=== PATIENT | female | born 1940 | race Caucasian/White ===

== ENCOUNTER 2016-10-24 17:12 | Emergency (ER) | payer MEDICARE, OTHER ==
[2016-10-24] MEDS ORDERED: ALBUTEROL SULFATE 2.5 MG/3 ML VIAL.NEB IH ONE (17:21)
--- NOTE | 2016-10-24 17:43 | ERNOTE ---
Dyspnea - Date Date of Service: 10/24/16 - General Presenting Symptoms: other - decreased oxygen Time Seen by Provider: 10/24/16 17:17 Source: patient Exam Limitations: no limitations - Immun/Allergies/Home Medications Immunizations: IMMUNIZATION HX Immunizations Up to Date Yes Hx Pneumococcal Vaccination Yes Allergies/Adverse Reactions: Allergies Penicillins Allergy (Verified 12/19/13 15:04) Home Medications: HOME MEDICATIONS Acetaminophen [Tylenol] 650 mg PO Q4H PRN 12/19/13 [Last Taken 12/09/13] Albuterol Sulfate/Ipratropium [Duoneb 2.5-0.5MG/3ML Soln] 3 ml INH QID PRN 12/19 [Last Taken 12/11/13] Ciclopirox/Skin Cleanser No.[id number] [Ciclodan 0.77% Cream Kit] 1 appl TP DAILY PRN [Last Taken Unknown] Lisinopril [Zestril] 10 mg PO DAILY 12/19/13 [Last Taken 12/19/13] Nystatin [Nystop] 1 appl TP BID PRN 12/19/13 [Last Taken Unknown] Pimecrolimus [Elidel] 1 appl TP DAILY PRN 12/19/13 [Last Taken Unknown] Docusate Sodium [Colace] 100 mg PO BID 10/05/14 [Last Taken Unknown] Albuterol Sulfate [Albuterol Sulfate 2.5 MG/3 ML] 2.5 mg IH Q4H PRN 10/24/16 [ Last Taken Unknown] Bupropion HCl 75 mg PO DAILY 10/24/16 [Last Taken Unknown] Doxycycline Monohydrate 100 mg PO BID #20 tablet 10/24/16 [Last Taken Unknown] Fexofenadine HCl 60 mg PO DAILY 10/24/16 [Last Taken Unknown] Furosemide [Lasix] 60 mg PO BID 10/24/16 [Last Taken Unknown] Hydrophilic Ointment [Aquaphilic Ointment] 1 appl TP BID 10/24/16 [Last Taken Unknown] Magnesium Hydroxide [Milk Of Magnesia] 30 ml PO DAILY PRN 10/24/16 [Last Taken Unknown] Sodium Chloride [Saline Nasal Mist] 2 spray NS BID 10/24/16 [Last Taken Unknown] Sodium Chloride [Saline Nasal Mist] 2 spray NS BID PRN 10/24/16 [Last Taken Unknown] Spironolactone [Aldactone] 25 mg PO DAILY 10/24/16 [Last Taken Unknown] amLODIPine BESYLATE [Norvasc] 5 mg PO DAILY 10/24/16 [Last Taken Unknown] glipiZIDE [Glipizide] 5 mg PO DAILY 10/24/16 [Last Taken Unknown] predniSONE [Prednisone] 3 tab PO DAILY #9 tab 10/24/16 [Last Taken Unknown] - History of Present Illness Narrative: Pt. comes in with c/o decreased oxygen saturation from [facility]. Pt. has a hx of blindness, COPD, CHF and obesity so she is chronically on 2LNC but today had to be increased to 3LNC to keep her saturations greater than 88 percent. Pt. denies any brething treatments used today to aid in her breathing. Pt. denies any SOB, CP, NVD, fever, recent illness or injury. Review of Systems - Review of Systems Constitutional: Present: no symptoms reported. Absent: recent illness, fever, chills, weakness, fatigue, malaise EYE: Present: no symptoms reported ENT: Present: no symptoms reported Respiratory: Present: other - decreased O2. Absent: shortness of breath, cough , wheezing Cardiology: Present: no symptoms reported. Absent: chest pain, palpitations, claudication Gastrointestinal/Abdominal: Present: no symptoms reported. Absent: nausea, vomiting, diarrhea, abdominal pain Genitourinary: Present: no symptoms reported Musculoskeletal: Present: no symptoms reported. Absent: back pain, joint pain Skin: Present: no symptoms reported Neurological: Present: no symptoms reported. Absent: headache, dizziness/light- headedness, numbness, tingling All Other Systems: All systems neg except as marked - Patient's Past Medical History Patient History - Medical: Cataracts, Diabetes Type 2 Insulin Dependent Patient History - Cardiac/Respiratory: CHF, COPD - Immunizations Immunizations Up to Date: Yes Hx Pneumococcal Vaccination: Yes Physical Exam - Physical Exam General Appearance: Present: wd/wn, alert, no apparent distress Head Exam: Present: normal inspection, no evidence of injury Eye Exam: PERRL: right, EOMI: bilateral, Abnormal pupil: left, Other: left - cataract covering entire eye Ears, Nose, Throat: Present: normal ENT inspection, normal pharynx Neck: Present: normal inspection, nontender. Absent: lymphadenopathy (R), lymphadenopathy (L) Respiratory: Present: accessory muscle use - suprasternal, decreased breath sounds, wheezing - BUL, other - pt. mouth breathing and appears to be having more difficulty breathig than pt. reports. Cardiovascular/Chest: Present: regular rate, rhythm, normal peripheral pulses, systolic murmur Gastrointestinal/Abdominal: Present: normal bowel sounds, nontender, soft, distended, other - obese Back Exam: Present: normal inspection, normal range of motion, no CVA tenderness , no vertebral tenderness Extremity Exam: Present: non-tender, normal range of motion, no edema, extremity edema - gross 3+ pitting normal for pt. Neurological Exam: Present: alert, oriented, normal mood/affect, motor weakness - generalized Skin Exam: Present: warm/dry, intertrigo - under pannis and breasts covered with powder. thick ketosis on lower legs and upper arms. Absent: pallor ED Progress - Date and Time Seen: Date and Time: 10/24/16 1745 Pt. O2 sats 85 before increased O2 and breathing treatments. 1809 CXR not changed from previous xray. 10/24/16 20:42 Asked pipoorion to come see pt. as she is boarderline for admission because she is experiencing acute exacerbation of chronic illness and is very similar to baseline as her baseline is very ill. Joe and I both agree that pt. can likely be treated as outpatient for COPD exacerbation and possible pneumonia. - Results and Orders Patient's Lab Results:: I have reviewed the patient's lab results. - Vital Signs Patient's Vital Signs:: I have reviewed the patient's vital signs. Vital Signs: Vital Signs 10/24/16 17:14 Temperature 36.6 C Pulse Rate 86 Respiratory 18 Rate Blood Pressure 137/63 O2 Sat by Pulse 89 L Oximetry - EKG EKG: NSR EKG read: Reviewed by me EKG Comments: interp by Dr Acosta - X-Ray X-Ray #1 X-Ray: chest Interpretation: Reviewed by me X-ray Comments: interstitial edema, B pleural effusion, bibasilar scarring soft tissues of neck overlay film cardiomegaly. Appears stable from previous xray. - Progress/Reassessment Progress:: Improved Departure Clinical Impression: COPD exacerbation, Pneumonia - Departure Disposition: Home self-care Condition: Good Referrals: Omayra Bird MD [Primary Care Provider] - Prescriptions: Doxycycline Monohydrate 100 mg PO BID #20 tablet predniSONE [Prednisone] 3 tab PO DAILY #9 tab
[2016-10-24 17:57] LABS: Hematocrit 37.4 % (37.0-47.0); Hemoglobin 10.8 gm/dL (12.5-16.0); Mean Cell Volume 105.9 fl (78-100); Mean Corpuscular Hemoglobin 30.6 pg (27-31); Mean Corpuscular Hgb Conc 28.9 g/dl (32-36); Mean Platelet Volume 8.6 fl (6.0-9.5); Neutrophil # 10.1 K/mm3 (1.3-6.0); Neutrophil % 83.8 % (42-75.0); Platelet Count 273 K/mm3 (150-450); Red Blood Count 3.53 M/mm3 (4.2-5.4); Red Cell Distribution Width 14.8 % (11.5-14.0); White Blood Count 12.1 K/mm3 (4.0-10.5)
[2016-10-24 18:19] LABS: ALT 22 U/L (19-67); AST 16 U/L (0-48); Albumin * 2.6 gm/dl (3.4-5.0); Alkaline Phosphatase * 110 U/L (50-170); BNP * 973 pg/mL (5-325); BUN/Creatinine Ratio 19.4 (9.0-21.6); Bilirubin, Total 0.3 mg/dL (0.0-1.1); Blood Urea Nitrogen 31 mg/dL (3-23); CRP 7.8 mg/dL (0.0-0.9); Ca. Corrected For Albumin 8.3 mg/dL (8.4-10.2); Calcium * 7.5 mg/dL (7.9-10.9); Carbon Dioxide 44.9 mmol/L (24-32.6); Chloride 95 mmol/L (97-106); Glucose * 123 mg/dL (70-110); Potassium 4.9 mmol/L (3.4-4.6); Sodium 139 mmol/L (132-142); Total Protein 8.4 gm/dL (6.2-8.2); Troponin I Less than 0.017 ng/ml (0.00-0.10)
[2016-10-24 19:04] LABS: Urine Bilirubin Negative (NEGATIVE); Urine Ketone Negative (NEGATIVE); Urine Nitrite Negative (NEGATIVE); Urine Protein Negative (NEGATIVE); Urine Urobilinogen Normal (NORMAL)
[2016-10-24 19:36] LABS: Urine Appearance Clear; Urine Bacteria TRACE; Urine Blood 5 /ul (NEGATIVE); Urine Color Yellow; Urine RBC TRACE /hpf (0-5); Urine WBC None Seen /hpf (0-5)
[2016-10-24] MEDS ORDERED: DOXYCYCLINE HYCLATE 100 MG TABLET PO ONE (20:52)
[2016-10-24] MEDS ORDERED: METHYLPREDNISOLONE ACETATE 80 MG/ML VIAL IM ONE (20:52)
[2016-10-24] MEDS ORDERED: METHYLPREDNISOLONE ACETATE 80 MG/ML VIAL ONE (20:54)
[2016-10-24] MEDS ORDERED: DOXYCYCLINE HYCLATE 100 MG TABLET ONE (20:54)
[2016-10-24 21:47] VITALS: BP 123/57
== END 2016-10-24 22:00 ==
LOC: ER 17:12
DX: J44.1 Chronic obstructive pulmonary disease with (acute) exacerbation (principal); J18.9 Pneumonia, unspecified organism; E11.9 Type 2 diabetes mellitus without complications; Z79.4 Long term (current) use of insulin; I50.9 Heart failure, unspecified; Z79.899 Other long term (current) drug therapy

== ENCOUNTER 2016-10-25 09:32 | Inpatient (IN) | payer MEDICARE, OTHER ==
[2016-10-25 10:09] LABS: Hematocrit 38.7 % (37.0-47.0); Hemoglobin 11.1 gm/dL (12.5-16.0); Mean Cell Volume 107.8 fl (78-100); Mean Corpuscular Hemoglobin 30.9 pg (27-31); Mean Corpuscular Hgb Conc 28.7 g/dl (32-36); Mean Platelet Volume 9.2 fl (6.0-9.5); Neutrophil # 10.1 K/mm3 (1.3-6.0); Neutrophil % 83.8 % (42-75.0); Platelet Count 296 K/mm3 (150-450); Red Blood Count 3.59 M/mm3 (4.2-5.4); Red Cell Distribution Width 14.7 % (11.5-14.0); White Blood Count 12.1 K/mm3 (4.0-10.5)
[2016-10-25] MEDS ORDERED: METHYLPREDNISOLONE SOD SUCC/PF 40 MG/ML VIAL IV ONE (10:21)
[2016-10-25] MEDS ORDERED: ALBUTEROL SULFATE/IPRATROPIUM 3 ML NEBU IH ONE ×2 (10:21→10:38)
[2016-10-25] MEDS ORDERED: FUROSEMIDE 10 MG/ML VIAL IV ONE ×3 (10:21→17:00)
[2016-10-25 10:26] LABS: Troponin I Less than 0.017 ng/ml (0.00-0.10)
[2016-10-25 10:33] LABS: ALT 24 U/L (19-67); AST 20 U/L (0-48); Albumin * 2.5 gm/dl (3.4-5.0); Alkaline Phosphatase * 115 U/L (50-170); BNP * 1172 pg/mL (5-325); BUN/Creatinine Ratio 19.6 (9.0-21.6); Bilirubin, Total 0.3 mg/dL (0.0-1.1); Blood Urea Nitrogen 31 mg/dL (3-23); Ca. Corrected For Albumin 8.7 mg/dL (8.4-10.2); Calcium * 7.8 mg/dL (7.9-10.9); Chloride 96 mmol/L (97-106); Glucose * 131 mg/dL (70-110); Potassium 5.2 mmol/L (3.4-4.6); Sodium 139 mmol/L (132-142); Total Protein 8.4 gm/dL (6.2-8.2)
[2016-10-25] MEDS ORDERED: FUROSEMIDE 10 MG/ML VIAL ONE (10:37)
[2016-10-25] MEDS ORDERED: METHYLPREDNISOLONE SOD SUCC/PF 40 MG/ML VIAL ONE (10:38)
[2016-10-25 10:43] LABS: Anion Gap 5.8 mmol/L (6.8-13.8); Carbon Dioxide 42.4 mmol/L (24-32.6)
--- NOTE | 2016-10-25 10:50 | ERNOTE ---
Date of Service: 10/25/16 Time Seen by Provider: 10/25/16 09:38 Stated Complaint: WEAK,SOB Presenting Symptoms:: other - fall, sob Source: patient Exam Limitations: no limitations Immunizations: IMMUNIZATION HX Immunizations Up to Date Yes History of Influenza Vaccine Yes Hx Pneumococcal Vaccination Yes Allergies/Adverse Reactions: Allergies Penicillins Allergy (Verified 10/25/16 09:47) Home Medications: HOME MEDICATIONS Acetaminophen [Tylenol] 650 mg PO Q4H PRN 12/19/13 [Last Taken 12/09/13] Albuterol Sulfate/Ipratropium [Duoneb 2.5-0.5MG/3ML Soln] 3 ml INH QID PRN 12/19 [Last Taken 12/11/13] Ciclopirox/Skin Cleanser No.28 [Ciclodan 0.77% Cream Kit] 1 appl TP DAILY PRN [Last Taken Unknown] Lisinopril [Zestril] 10 mg PO DAILY 12/19/13 [Last Taken 12/19/13] Nystatin [Nystop] 1 appl TP BID PRN 12/19/13 [Last Taken Unknown] Pimecrolimus [Elidel] 1 appl TP DAILY PRN 12/19/13 [Last Taken Unknown] Docusate Sodium [Colace] 100 mg PO BID 10/05/14 [Last Taken Unknown] Albuterol Sulfate [Albuterol Sulfate 2.5 MG/3 ML] 2.5 mg IH Q4H PRN 10/24/16 [ Last Taken Unknown] Bupropion HCl 75 mg PO DAILY 10/24/16 [Last Taken Unknown] Doxycycline Monohydrate 100 mg PO BID #20 tablet 10/24/16 [Last Taken Unknown] Fexofenadine HCl 60 mg PO DAILY 10/24/16 [Last Taken Unknown] Furosemide [Lasix] 60 mg PO BID 10/24/16 [Last Taken Unknown] Hydrophilic Ointment [Aquaphilic Ointment] 1 appl TP BID 10/24/16 [Last Taken Unknown] Magnesium Hydroxide [Milk Of Magnesia] 30 ml PO DAILY PRN 10/24/16 [Last Taken Unknown] Sodium Chloride [Saline Nasal Mist] 2 spray NS BID 10/24/16 [Last Taken Unknown] Sodium Chloride [Saline Nasal Mist] 2 spray NS BID PRN 10/24/16 [Last Taken Unknown] Spironolactone [Aldactone] 25 mg PO DAILY 10/24/16 [Last Taken Unknown] amLODIPine BESYLATE [Norvasc] 5 mg PO DAILY 10/24/16 [Last Taken Unknown] glipiZIDE [Glipizide] 5 mg PO DAILY 10/24/16 [Last Taken Unknown] predniSONE [Prednisone] 3 tab PO DAILY #9 tab 10/24/16 [Last Taken Unknown] - History of Present Ilness Narrative: Patient presents to the ED for a fall. She lives at a [facility]. She had a sliding fall this morning. SHe relates no injury from this fall. She was seen here last night with SOB and was given steroids and ABx. She relaates her SOB is unchanged. She denies CP. No fever. Denies pain from the fall. No head injury. Ambulance brought her in. Normally on 3L. Bumped to 4L en route. Denies increased leg swelling. Timing: constant Severity: moderate Frequency/Possible Cause: Reports: other - feeling weak generally Modifying Factors - Improves: Reports: nothing Modifying Factors - Worsens: Reports: nothing Associated Symptoms: Reports: cough, shortness of breath. Denies: chest pain/ soreness Prior Treatment: Reports: recently seen Review of Systems - Review of Systems Constitutional: Absent: fever Respiratory: Present: shortness of breath, cough Cardiology: Absent: chest pain Gastrointestinal/Abdominal: Absent: abdominal pain All Other Systems: All systems neg except as marked - Patient's Past Medical History Patient History - Medical: Cataracts, Diabetes Type 2 Insulin Dependent Patient History - Cardiac/Respiratory: CHF, COPD Patient History - Cancer: No Hx of Cancer Patient History - Surgical Procedures: No surgical history Patient History - Other: None LMP (females 10-50): post - Social History Living Situations: intermediate Psych History: Hx of Depression Smoking Status: Never smoker Alcohol Use: none Drug Use: none - Immunizations Immunizations Up to Date: Yes Hx Pneumococcal Vaccination: Yes History of Influenza Vaccine: Yes Physical Exam - Physical Exam General Appearance: Present: alert, no apparent distress, other - mild tachypnea Head Exam: Present: normal inspection, no evidence of injury Eye Exam: Normal inspection: bilateral Ears, Nose, Throat: Present: normal ENT inspection Neck: Present: normal inspection Respiratory: Present: wheezing, other - scattered wheezes Cardiovascular/Chest: Present: regular rate, rhythm Gastrointestinal/Abdominal: Present: normal bowel sounds, nontender, soft Back Exam: Absent: CVA tenderness (R), CVA tenderness (L) Extremity Exam: Present: extremity edema Neurological Exam: Present: alert, normal mood/affect, other - no acute unilateral focal motor or sensory deficits Skin Exam: Present: normal color, warm/dry ED Progress - Results and Orders Patient's Lab Results:: I have reviewed the patient's lab results. - Vital Signs Patient's Vital Signs:: I have reviewed the patient's vital signs. Vital Signs: Vital Signs 10/25/16 10/25/16 10/25/16 09:35 10:13 10:40 Temperature 36.2 C L 36.0 C L Pulse Rate 82 81 78 Respiratory 20 25 H 22 H Rate Blood Pressure 127/54 128/53 O2 Sat by Pulse 90 90 95 Oximetry - EKG EKG: NSR EKG read: Interp. by me EKG Comments: NSR rate 79. Non-specific,no STEMI. - X-Ray X-Ray #1 X-Ray: chest Interpretation: Interp. by me X-ray Comments: I reviewed official radiology report - Progress/Reassessment Chief Complaint: Upper Respiratory Symptoms Progress Note-Subjective: 10/25/16 10:48 BiPAp started. no clear pneumonia, on outpatient ABx. IV lasix, steroids given. D/W Hospitalist, will admit. Pt agreeable. Departure - Departure Clinical Impression: Fall, SOB (shortness of breath), CHF (congestive heart failure), Hypercapnia Disposition: [facility] Condition: Fair
[2016-10-25] MEDS ORDERED: METHYLPREDNISOLONE SOD SUCC/PF 40 MG/ML VIAL IV SCH (13:15)
[2016-10-25] MEDS ORDERED: FUROSEMIDE 10 MG/ML VIAL IV SCH (13:15)
[2016-10-25] MEDS ORDERED: METHYLPREDNISOLONE SOD SUCC 80 MG in WATER FOR INJ.,BACTERIOSTATIC 0 ML IV ONE (14:00)
[2016-10-25] MEDS: CEFEPIME HCL 1 GM in DEXTROSE 5 % IN WATER 100 ML IV SCH ×2 (14:00)
[2016-10-25] MEDS: AZITHROMYCIN 500 MG in DEXTROSE 5 % IN WATER 250 ML IV SCH ×2 (14:07)
[2016-10-25] MEDS: ALBUTEROL SULFATE/IPRATROPIUM 3 ML NEBU IH SCH ×2 (14:17→18:10)
--- NOTE | 2016-10-25 14:22 | HP ---
Chief Complaint - Chief Complaint Date of Service: 10/25/16 Time of Service: 13:07 Chief Complaint: shortness of breath, weakness History of Present Illness: Zuleyma is a 76 year old female resident of [facility], Patient of Dr. Bird with a PMH of chronic respiratory failure (baseline O2 at 2L nc), DM T2, COPD, diastolic heart failure (last echo 12/2013 showed mild LVH with normal ef, diastolic dysfunction, mild TR, trace ME, pulmonary HTN with RVSP >60 ), and morbid obesity who presented to the ER today with c/o dyspnea and weakness. Patient was previously seen in the ER 10/24/16 where CXR showed findings concerning for CHF with co-existent infection not excluded. Patient was discharged from the ED on 10/24/16 with scripts for doxycycline 100 mg bid and prednisone. ER evaluation today revealed anemia with hgb/hct at 11.1/38.7, elevated wbc at 12.1. bnp 1172. trop negative. creatinine 1.58 (baseline 1.4-1.7 ). ABG showed pCO2 99.5, pO2 52.4, GWA852.1, pH 7.28, O2 sat 79.7. Chest xray showed bilateral pleural effusions with basilar consolidations and cardiomegaly. Patient was given duoneb treatment, lasix 20 mg iv x1 and solumedrol 40 mg iv x1 in the ER and started on bipap at 15/5. Patient to be admitted for Acute on chronic respiratory failure with hypoxia and hypercabnia, COPD exac, diastolic heart failure exacerbation. Of note, patient is mildly mentally retarded and is not mentally competent to make her own decisions. All legal documents are signed by her POA. - Patient's Past Medical History Patient History - Medical: Cataracts, Diabetes Type 2 Insulin Dependent, Obesity , Other Patient History - Cardiac/Respiratory: CHF, COPD, Hypertension, Hyperlipidemia Patient History - Cancer: No Hx of Cancer Patient History - Surgical Procedures: Cataracts, Hysterectomy, Other Patient History - Other: None LMP (females 10-50): Menopausal - Family History Father Family History - Medical: No pertinent hx Mother Family History - Medical: No pertinent hx - Social History Living Situations: residential Psych History: Hx of Depression, Current tx/ever been on anti-depressants or anti-anxiety meds Smoking Status: Never smoker Have you smoked in the past 12 months: No Do you dip or chew tobacco: No Alcohol Use: none Drug Use: none - Immunizations Immunizations Up to Date: Yes Hx Pneumococcal Vaccination: Yes History of Influenza Vaccine: Yes Review Of Systems (GEN) - Review of Systems Generalized/Overall Review: Present: Weakness, Fatigue EENTM: Present: No Symptoms Reported Respiratory: Present: Shortness of Breath Cardiac: Present: Edema Abdominal: Present: No Symptoms Reported Genitourinary: Present: No Symptoms Reported Musculoskeletal: Present: No Symptoms Reported Neurological: Present: No Symptoms Reported Skin: Present: No Symptoms Reported Endocrine: Present: No Symptoms Reported Misc: All systems neg except as marked Immunizations: IMMUNIZATION HX Immunizations Up to Date Yes History of Influenza Vaccine Yes Hx Pneumococcal Vaccination Yes Allergies/Adverse Reactions: Allergies Allergy/AdvReac Type Severity Reaction Status Date / Time Penicillins Allergy Verified 10/25/16 09:47 Home Medications: HOME MEDICATIONS Acetaminophen [Tylenol] 650 mg PO Q4H PRN 12/19/13 [Last Taken 12/09/13] Albuterol Sulfate/Ipratropium [Duoneb 2.5-0.5MG/3ML Soln] 3 ml INH QID PRN 12/19 [Last Taken 12/11/13] Ciclopirox/Skin Cleanser No.28 [Ciclodan 0.77% Cream Kit] 1 appl TP DAILY PRN [Last Taken Unknown] Lisinopril [Zestril] 10 mg PO DAILY 12/19/13 [Last Taken 12/19/13] Nystatin [Nystop] 1 appl TP BID PRN 12/19/13 [Last Taken Unknown] Pimecrolimus [Elidel] 1 appl TP DAILY PRN 12/19/13 [Last Taken Unknown] Docusate Sodium [Colace] 100 mg PO BID 10/05/14 [Last Taken Unknown] Albuterol Sulfate [Albuterol Sulfate 2.5 MG/3 ML] 2.5 mg IH Q4H PRN 10/24/16 [ Last Taken Unknown] Bupropion HCl 75 mg PO DAILY 10/24/16 [Last Taken Unknown] Doxycycline Monohydrate 100 mg PO BID #20 tablet 10/24/16 [Last Taken Unknown] Fexofenadine HCl 60 mg PO DAILY 10/24/16 [Last Taken Unknown] Furosemide [Lasix] 60 mg PO BID 10/24/16 [Last Taken Unknown] Hydrophilic Ointment [Aquaphilic Ointment] 1 appl TP BID 10/24/16 [Last Taken Unknown] Magnesium Hydroxide [Milk Of Magnesia] 30 ml PO DAILY PRN 10/24/16 [Last Taken Unknown] Sodium Chloride [Saline Nasal Mist] 2 spray NS BID 10/24/16 [Last Taken Unknown] Sodium Chloride [Saline Nasal Mist] 2 spray NS BID PRN 10/24/16 [Last Taken Unknown] Spironolactone [Aldactone] 25 mg PO DAILY 10/24/16 [Last Taken Unknown] amLODIPine BESYLATE [Norvasc] 5 mg PO DAILY 10/24/16 [Last Taken Unknown] glipiZIDE [Glipizide] 5 mg PO DAILY 10/24/16 [Last Taken Unknown] predniSONE [Prednisone] 60 mg PO DAILY 10/25/16 [Last Taken Unknown] Exam - Exam Vital Signs: Vital Signs - Last Taken Temp 36.8 C 10/25/16 11:57 Pulse 77 10/25/16 14:17 Resp 18 10/25/16 14:17 BP 152/43 10/25/16 13:59 Pulse Ox 94 10/25/16 14:17 Constitutional: Present: Mild distress, Somnolent, Morbidly obese, Looks Older than stated age Eye Exam: bilateral eye: normal inspection Neck: Present: other - thick, short neck Breasts: Present: Exam deferred Respiratory: Present: chest non-tender, respiratory distress - mild, crackles - diffuse, bilat Cardiovascular/Chest: Present: regular rate, rhythm, JVD, systolic murmur - 2/6 , edema - 2+ lower extremity edema, chronic, due to chronic venous stasis. Absent: tachycardia Peripheral Pulses: carotid (R): 2+, carotid (L): 2+, dorsalis-pedis (R): 1+, dorsalis-pedis (L): 1+, radial (R): 2+, radial (L): 2+ Abdomen: Present: soft, nontender, obese /Rectal: Present: Exam deferred Extremity: Present: lower extremity edema - 2+, chronic, pitting, due to chronic venous stasis Skin Exam: Present: warm/dry, no cyanosis, pallor Diagnostic Studies: Abnormal Lab Results 10/25/16 Range/Units 12:55 pCO2 119.9 H* (32.0-45.0) mmHg pO2 68.4 L (83.0-108.0) mmHg HCO3 51.4 H (21.0-28.0) mmol/L Total CO2 55.1 H (19.0-24.0) mmol/L Base Excess 19.4 H (-2.0-3.0) mmol/L ABG pH 7.25 L (7.35-7.45) ABG O2 Sat (Measured) 88.5 L (94.0-98.0) % Laboratory Results WBC 12.1 K/mm3 (4.0-10.5) H 10/25/16 09:55 RBC 3.59 M/mm3 (4.2-5.4) L 10/25/16 09:55 Hgb 11.1 gm/dL (12.5-16.0) L 10/25/16 09:55 Hct 38.7 % (37.0-47.0) 10/25/16 09:55 MCV 107.8 fl (78-100) H 10/25/16 09:55 MCH 30.9 pg (27-31) 10/25/16 09:55 MCHC 28.7 g/dl (32-36) L 10/25/16 09:55 RDW 14.7 % (11.5-14.0) H 10/25/16 09:55 Plt Count 296 K/mm3 (150-450) 10/25/16 09:55 MPV 9.2 fl (6.0-9.5) 10/25/16 09:55 Immature Gran % (Auto) 1.00 % (0.001-0.429) H 10/25/16 09:55 Immature Gran # (Auto) 0.12 K/mm3 (0.000-0.0310) H 10/25/16 09:55 Neutrophils % 83.8 % (42-75.0) H 10/25/16 09:55 Lymphocytes % 6.3 % (20-51) L 10/25/16 09:55 Monocytes % 8.3 % (0.0-9) 10/25/16 09:55 Eosinophils % 0.2 % (0.0-3.0) 10/25/16 09:55 Basophils % 0.4 % (0.0-1.0) 10/25/16 09:55 Nucleated RBC % 0.0 k/mm3 (0-1) 10/25/16 09:55 Neutrophils # 10.1 K/mm3 (1.3-6.0) H 10/25/16 09:55 Lymphocytes # 0.8 k/mm3 (1.5-3.5) L 10/25/16 09:55 Monocytes # 1.0 k/mm3 (0.0-1.0) 10/25/16 09:55 Eosinophils # 0.0 k/mm3 (0.0-0.7) 10/25/16 09:55 Absolute Basophils 0.1 k/mm3 (0.0-0.1) 10/25/16 09:55 pCO2 119.9 mmHg (32.0-45.0) H* 10/25/16 12:55 pO2 68.4 mmHg (83.0-108.0) L 10/25/16 12:55 HCO3 51.4 mmol/L (21.0-28.0) H 10/25/16 12:55 Total CO2 55.1 mmol/L (19.0-24.0) H 10/25/16 12:55 Base Excess 19.4 mmol/L (-2.0-3.0) H 10/25/16 12:55 ABG pH 7.25 (7.35-7.45) L 10/25/16 12:55 ABG O2 Sat (Measured) 88.5 % (94.0-98.0) L 10/25/16 12:55 Sodium 139 mmol/L (132-142) 10/25/16 09:55 Plasma Sodium 139 mmol/L (130-142) 10/25/16 09:55 Potassium 5.2 mmol/L (3.4-4.6) H 10/25/16 09:55 Chloride 96 mmol/L (97-106) L 10/25/16 09:55 Carbon Dioxide 42.4 mmol/L (24-32.6) H 10/25/16 09:55 Anion Gap 5.8 mmol/L (6.8-13.8) L 10/25/16 09:55 BUN 31 mg/dL (3-23) H 10/25/16 09:55 Creatinine 1.58 mg/dL (0.4-1.4) H 10/25/16 09:55 Est GFR (Non-Af Amer) 34 mL/min (60-130) L 10/25/16 09:55 BUN/Creatinine Ratio 19.6 (9.0-21.6) 10/25/16 09:55 Random Glucose 131 mg/dL (70-110) H 10/25/16 09:55 Lactic Acid, Venous 0.8 mmol/L (0.4-1.9) 10/25/16 09:55 Calcium 7.8 mg/dL (7.9-10.9) L 10/25/16 09:55 Calcium Adj for Albumin 8.7 mg/dL (8.4-10.2) 10/25/16 09:55 Total Bilirubin 0.3 mg/dL (0.0-1.1) 10/25/16 09:55 AST 20 U/L (0-48) 10/25/16 09:55 ALT 24 U/L (19-67) 10/25/16 09:55 Alkaline Phosphatase 115 U/L (50-170) 10/25/16 09:55 Troponin I Less than 0.017 ng/ml (0.00-0.10) 10/25/16 09:55 B-Natriuretic Peptide 1172 pg/mL (5-325) H 10/25/16 09:55 Total Protein 8.4 gm/dL (6.2-8.2) H 10/25/16 09:55 Albumin 2.5 gm/dl (3.4-5.0) L 10/25/16 09:55 Assessment/Plan - Narrative Narrative: Acute on chronic respiratory failure with hypoxia and hypercapnia. - chronic O2 use is NC at 2L - patient came into ER at 90% on 3L O2 and in respiratory distress - CO2 level in ER critical at 99 - started on bipap in ER at 15/2 - Continue bipap at 15/2 - recheck abg in 1 hour - if CO2 continues to increase will need to increase bipap pressure - supplement O2 to keep sats greater than 88% given COPD history - Given solumedrol 40 mg iv x1 in ER - will give an additional 80 mg x1 now (10/25/16) to equal an initial dose of 120 mg iv x1 - then start solumedrol 80 mg iv q 8 hours - verified DNR status with POA - monitor patient closely COPD exacerbation/possible pneumonia - solumedrol 40 mg iv x1 given in ER - give an additional dose of 80 mg x1 now, then start 80 mg iv q 8 hours - Antibiotics - Cefepime (broader coverage given that she lives in a care center) - 1 gm q 12 hours - Day #1 - Azithromycin 500 mg iv daily x5 doses - Day #1 - Vancomycin 2 gm x1 dose, awaiting nasal swab to r/o MRSA. - Duonebs QID - Incentive spirometer q 2 hours when more awake - vital signs q 4 hours - recheck chest xray in am. - recheck labs in am. Bilateral pleural effusion - co-existent infection not excluded per chest xray report (ie: possible pneumonia) - see above for abx ordered - lasix 20 mg given in ER - additional 60 mg lasix iv x1 now - will give an additional 80 mg lasix iv x1 at 1700. - recheck labs in am. - if persistent, and patient stabilizes, will discuss with family the possibility of pleurocentesis - recheck chest xray in am. Acute diastolic CHF exacerbation - BNP elevated and lungs sound "wet" - Lasix 20 mg given x1 in ER 10/25/16 - will give an addition lasix 60 mg iv x1 now and then 80 mg lasix iv x1 at 1700 - re check labs in am - strict I&Os - daily weights - CHF teaching, likely with family given patient's mental retardation (mild) but would involve patient as well. Diabetes - Accu-checks QID - sliding scale insulin prn with accu-checks - consistent carb diet Code status: DNR VTE: lovenox GI Proph: protonix iv. - Assessment/Plan (1) Respiratory failure Problem: Acute Qualifiers: Chronicity: acute on chronic Respiratory failure complication: hypoxia and hypercapnia Qualified Code(s): J96.21 - Acute and chronic respiratory failure with hypoxia; J96.22 - Acute and chronic respiratory failure with hypercapnia (2) Bilateral pleural effusion Problem: Acute (3) Diabetes Problem: Chronic Qualifiers: Diabetes mellitus type: type 2 Diabetes mellitus complication status: with hyperglycemia Diabetes mellitus [employer] insulin use: without [employer] use Qualified Code(s): E11.65 - Type 2 diabetes mellitus with hyperglycemia (4) Morbid (severe) obesity with alveolar hypoventilation Problem: Chronic (5) Pulmonary hypertension Problem: Chronic (6) CHF (congestive heart failure) Problem: Acute Qualifiers: Congestive heart failure type: diastolic Congestive heart failure chronicity: acute Qualified Code(s): I50.31 - Acute diastolic (congestive) heart failure (7) COPD exacerbation Problem: Acute
[2016-10-25] MEDS: ENOXAPARIN SODIUM 40 MG/0.4 ML SYRG SC SCH (16:13)
[2016-10-25] MEDS ORDERED: VANCOMYCIN HCL 2 GM in DEXTROSE 5 % IN WATER 500 ML IV ONE ×2 (17:00)
[2016-10-25 17:12] LABS: Hemoglobin A1C 7.4 % (4.00-6.0)
[2016-10-25] MEDS ORDERED: ALPRAZolam 0.5 MG TABLET PO ONE (20:44)
[2016-10-25] MEDS: METHYLPREDNISOLONE SOD SUCC 80 MG in WATER FOR INJ.,BACTERIOSTATIC 0 ML IV SCH (21:21)
[2016-10-25] MEDS ORDERED: CICLODAN TP PRN (22:06)
[2016-10-25] MEDS ORDERED: ALBUTEROL SULFATE/IPRATROPIUM 3 ML NEBU IH PRN (22:06)
[2016-10-25] MEDS ORDERED: NYSTATIN 15 APPL BTL TP PRN (22:06)
[2016-10-25] MEDS: PANTOPRAZOLE SODIUM 40 MG in NORMAL SALINE 100 ML IV SCH (22:46)
[2016-10-25] MEDS: SACCHAROMYCES BOULARDII 250 MG CAPSULE PO SCH (22:48)
[2016-10-25] MEDS: INSULIN LISPRO 100 UNITS/ML VIAL SC SCH (22:53)
[2016-10-25] MEDS ORDERED: ALPRAZolam 0.5 MG TABLET PO SCH (23:51)
[2016-10-26] MEDS: CEFEPIME HCL 1 GM in DEXTROSE 5 % IN WATER 100 ML IV SCH ×4 (02:28→14:45)
[2016-10-26] MEDS: METHYLPREDNISOLONE SOD SUCC 80 MG in WATER FOR INJ.,BACTERIOSTATIC 0 ML IV SCH ×3 (05:04→22:22)
[2016-10-26] MEDS: ALBUTEROL SULFATE/IPRATROPIUM 3 ML NEBU IH SCH ×4 (06:03→18:22)
[2016-10-26 06:22] LABS: Hematocrit 35.8 % (37.0-47.0); Hemoglobin 10.3 gm/dL (12.5-16.0); Mean Cell Volume 106.5 fl (78-100); Mean Corpuscular Hemoglobin 30.7 pg (27-31); Mean Corpuscular Hgb Conc 28.8 g/dl (32-36); Mean Platelet Volume 9.3 fl (6.0-9.5); Neutrophil # 11.3 K/mm3 (1.3-6.0); Platelet Count 273 K/mm3 (150-450); Red Blood Count 3.36 M/mm3 (4.2-5.4); Red Cell Distribution Width 14.6 % (11.5-14.0); White Blood Count 12.1 K/mm3 (4.0-10.5)
[2016-10-26 06:38] LABS: Albumin * 2.3 gm/dl (3.4-5.0); BUN/Creatinine Ratio 21.3 (9.0-21.6); Bilirubin, Total 0.3 mg/dL (0.0-1.1); Ca. Corrected For Albumin 8.7 mg/dL (8.4-10.2); Calcium * 7.7 mg/dL (7.9-10.9); Potassium 5.6 mmol/L (3.4-4.6); Total Protein 7.9 gm/dL (6.2-8.2)
[2016-10-26 06:51] LABS: Anion Gap 6.9 mmol/L (6.8-13.8); Carbon Dioxide 44.7 mmol/L (24-32.6)
[2016-10-26] MEDS: INSULIN LISPRO 100 UNITS/ML VIAL SC SCH ×4 (06:53→21:36)
[2016-10-26] MEDS: glipiZIDE 5 MG TABLET PO SCH (07:24)
[2016-10-26] MEDS: HYDROPHILIC OINTMENT 454 APPL JAR TP SCH ×2 (08:37→21:29)
[2016-10-26] MEDS: SPIRONOLACTONE 25 MG TABLET PO SCH (08:37)
[2016-10-26] MEDS: DOCUSATE SODIUM 100 MG CAPSULE PO SCH ×2 (08:38→21:31)
[2016-10-26] MEDS: amLODIPine BESYLATE 5 MG TABLET PO SCH (08:38)
[2016-10-26] MEDS: LORATADINE 10 MG TABLET PO SCH (08:38)
[2016-10-26] MEDS: SACCHAROMYCES BOULARDII 250 MG CAPSULE PO SCH ×2 (08:38→21:30)
[2016-10-26] MEDS: FUROSEMIDE 20 MG TABLET PO SCH ×2 (08:38→21:32)
[2016-10-26] MEDS: LISINOPRIL 10 MG TABLET PO SCH (08:39)
[2016-10-26] MEDS: buPROPion HCL 100 MG TABLET PO SCH (08:39)
[2016-10-26] MEDS ORDERED: ALPRAZolam 0.5 MG TABLET PO PRN (08:41)
[2016-10-26] MEDS ORDERED: FUROSEMIDE 40 MG TABLET PO SCH (09:00)
[2016-10-26] MEDS: FUROSEMIDE 10 MG/ML VIAL IV SCH ×3 (09:02→21:33)
--- NOTE | 2016-10-26 10:52 | PN ---
Subjective - Date and Time Seen Date: 10/26/16 Time: 10:52 Subjective Narrative: feeling a little better. tolerating bipap better. more alert than yesterday. Objective - Review of Systems Generalized/Overall Review: Reports: No Symptoms Reported EENTM: Reports: No Symptoms Reported Respiratory: Reports: Shortness of Breath Cardiac: Reports: No Symptoms Reported Abdominal: Reports: No Symptoms Reported Genitourinary Symptoms: Reports: No Symptoms Reported Musculoskeletal Complaints: Reports: No Symptoms Reported Neurological: Reports: No Symptoms Reported Skin: Reports: No Symptoms Reported Endocrine: Reports: No Symptoms Reported Misc: All systems neg except as marked - Vitals Vitals: Last Vital Signs Temp 36.7 C 10/26/16 07:16 Pulse 68 10/26/16 09:02 Resp 23 H 10/26/16 07:16 BP 122/95 10/26/16 09:02 Pulse Ox 96 10/26/16 07:16 - Abnormal Lab Findings Abnormal Lab Findings: Abnormal Lab Results 10/25/16 10/26/16 10/26/16 Range/Units 13:51 04:58 06:16 WBC 12.1 H (4.0-10.5) K/mm3 RBC 3.36 L (4.2-5.4) M/mm3 Hgb 10.3 L (12.5-16.0) gm/dL Hct 35.8 L (37.0-47.0) % MCV 106.5 H (78-100) fl MCHC 28.8 L (32-36) g/dl RDW 14.6 H (11.5-14.0) % Immature Gran % (Auto) 0.80 H (0.001-0.429) % Immature Gran # (Auto) 0.10 H (0.000-0.0310) K/mm3 Neutrophils % 93.0 H (42-75.0) % Lymphocytes % 3.4 L (20-51) % Neutrophils # 11.3 H (1.3-6.0) K/mm3 Lymphocytes # 0.4 L (1.5-3.5) k/mm3 pCO2 84.1 H* 86.0 H* (32.0-45.0) mmHg pO2 108.9 H 72.8 L (83.0-108.0) mmHg HCO3 38.8 H 44.3 H (21.0-28.0) mmol/L Total CO2 41.4 H 47.0 H (19.0-24.0) mmol/L Base Excess 9.8 H 15.3 H (-2.0-3.0) mmol/L ABG pH 7.28 L 7.33 L (7.35-7.45) ABG O2 Sat (Measured) 92.6 L (94.0-98.0) % Potassium (3.4-4.6) mmol/L Chloride (97-106) mmol/L Carbon Dioxide (24-32.6) mmol/L BUN (3-23) mg/dL Creatinine (0.4-1.4) mg/dL Est GFR (Non-Af Amer) (60-130) mL/min Random Glucose (70-110) mg/dL Calcium (7.9-10.9) mg/dL Albumin (3.4-5.0) gm/dl 10/26/16 Range/Units 06:16 WBC (4.0-10.5) K/mm3 RBC (4.2-5.4) M/mm3 Hgb (12.5-16.0) gm/dL Hct (37.0-47.0) % MCV (78-100) fl MCHC (32-36) g/dl RDW (11.5-14.0) % Immature Gran % (Auto) (0.001-0.429) % Immature Gran # (Auto) (0.000-0.0310) K/mm3 Neutrophils % (42-75.0) % Lymphocytes % (20-51) % Neutrophils # (1.3-6.0) K/mm3 Lymphocytes # (1.5-3.5) k/mm3 pCO2 (32.0-45.0) mmHg pO2 (83.0-108.0) mmHg HCO3 (21.0-28.0) mmol/L Total CO2 (19.0-24.0) mmol/L Base Excess (-2.0-3.0) mmol/L ABG pH (7.35-7.45) ABG O2 Sat (Measured) (94.0-98.0) % Potassium 5.6 H (3.4-4.6) mmol/L Chloride 92 L (97-106) mmol/L Carbon Dioxide 44.7 H (24-32.6) mmol/L BUN 34 H (3-23) mg/dL Creatinine 1.60 H (0.4-1.4) mg/dL Est GFR (Non-Af Amer) 33 L (60-130) mL/min Random Glucose 161 H (70-110) mg/dL Calcium 7.7 L (7.9-10.9) mg/dL Albumin 2.3 L (3.4-5.0) gm/dl - Exam Constitutional: Present: Cooperative, Lethargic - but improved from yesterday Neck: Present: supple Breasts: Present: Exam deferred Respiratory: Present: decreased breath sounds, crackles Cardiovascular/Chest: Present: normal peripheral pulses, regular rate, rhythm, systolic murmur - 2/6 Abdomen: Present: soft, nontender, obese Extremity: Present: lower extremity edema - 2+ chronic due to chronic venous stasis Skin Exam: Present: warm/dry, no cyanosis, pallor Cauti Physician Documentation - Urinary Catheter Management Urethral (Santiago) Urethral Indwelling: Yes Reason for Continuing Indwelling Catheter: Measure accurate output Date of Insertion: 10/25/16 Time of Insertion: 23:25 Assessment/Plan Plan Narrative: Acute on chronic respiratory failure with hypoxia and hypercapnia. - chronic O2 use is NC at 2L - patient came into ER at 90% on 3L O2 and in respiratory distress - CO2 level in ER critical at 99 - started on bipap in ER at 15/2 - had to increase bipap yesterday to 20/5 as CO2 level elevated to 119. - bipap this am currently at 20/5, 30% FiO2 - start trial weaning periods this afternoon as tolerated. - recheck abg as needed - supplement O2 to keep sats greater than 88% given COPD history - Solumedrol 120 mg given 10/25/16 then started at 80 mg iv q 8 hours - continue solumedrol at current dose today 10/26/16 (80 mg q 8 hours) - verified DNR status with POA - monitor patient closely COPD exacerbation/possible pneumonia - solumedrol 40 mg iv x1 given in ER - give an additional dose of 80 mg x1 now, then start 80 mg iv q 8 hours ( 10/25/16) - continue solumedrol at 80 mg iv q 8 hours 10/26/16 - Antibiotics - Cefepime (broader coverage given that she lives in a care center) - 1 gm q 12 hours - Day #2 - Azithromycin 500 mg iv daily x5 doses - Day #2 - Vancomycin 2 gm x1 dose on 10/25/16 - MRSA nasal swab positive - Start Vancomycin 2 gm iv q 12 hours - Day #2 - pharmacy to dose - Duonebs QID - Incentive spirometer q 2 hours when more awake - vital signs q 4 hours - recheck chest xray in am. - recheck labs in am. Bilateral pleural effusion - co-existent infection not excluded per chest xray report (ie: possible pneumonia) - see above for abx ordered - lasix 80 mg iv bid given 10/25/16 - lasix 80 mg iv bid today 10/26/16 - recheck labs in am. - if persistent, and patient stabilizes, will discuss with family the possibility of pleurocentesis - recheck chest xray in am. Acute diastolic CHF exacerbation - lasix 80 mg iv bid given 10/25/16 - lasix 80 mg iv today 10/26/16 - recheck labs in am. - strict I&Os - daily weights - CHF teaching, likely with family given patient's mental retardation (mild) but would involve patient as well. Diabetes - Accu-checks QID - sliding scale insulin prn with accu-checks - consistent carb diet Code status: DNR VTE: lovenox GI Proph: protonix iv. - Problems/Diagnosis (1) Respiratory failure Problem: Acute Qualifiers: Chronicity: acute on chronic Respiratory failure complication: hypoxia and hypercapnia Qualified Code(s): J96.21 - Acute and chronic respiratory failure with hypoxia; J96.22 - Acute and chronic respiratory failure with hypercapnia (2) Bilateral pleural effusion Problem: Acute (3) Diabetes Problem: Chronic Qualifiers: Diabetes mellitus type: type 2 Diabetes mellitus complication status: with hyperglycemia Diabetes mellitus care home insulin use: without care home use Qualified Code(s): E11.65 - Type 2 diabetes mellitus with hyperglycemia (4) Morbid (severe) obesity with alveolar hypoventilation Problem: Chronic (5) Pulmonary hypertension Problem: Chronic (6) CHF (congestive heart failure) Problem: Acute Qualifiers: Congestive heart failure type: diastolic Congestive heart failure chronicity: acute Qualified Code(s): I50.31 - Acute diastolic (congestive) heart failure (7) COPD exacerbation Problem: Acute
[2016-10-26] MEDS: AZITHROMYCIN 500 MG in DEXTROSE 5 % IN WATER 250 ML IV SCH ×2 (13:21)
[2016-10-26] MEDS: ENOXAPARIN SODIUM 40 MG/0.4 ML SYRG SC SCH (16:43)
[2016-10-26] MEDS: VANCOMYCIN HCL 2 GM in DEXTROSE 5 % IN WATER 500 ML IV SCH ×2 (17:57)
[2016-10-26] MEDS: PANTOPRAZOLE SODIUM 40 MG in NORMAL SALINE 100 ML IV SCH (21:43)
[2016-10-27] MEDS: CEFEPIME HCL 1 GM in DEXTROSE 5 % IN WATER 100 ML IV SCH ×4 (03:43→14:42)
[2016-10-27] MEDS: METHYLPREDNISOLONE SOD SUCC 80 MG in WATER FOR INJ.,BACTERIOSTATIC 0 ML IV SCH ×2 (06:04→17:22)
[2016-10-27] MEDS: ALBUTEROL SULFATE/IPRATROPIUM 3 ML NEBU IH SCH ×4 (06:14→18:17)
[2016-10-27 06:34] LABS: Hematocrit 34.8 % (37.0-47.0); Hemoglobin 10.5 gm/dL (12.5-16.0); Mean Cell Volume 102.7 fl (78-100); Mean Corpuscular Hgb Conc 30.2 g/dl (32-36); Mean Platelet Volume 9.2 fl (6.0-9.5); Neutrophil # 10.5 K/mm3 (1.3-6.0); Neutrophil % 88.1 % (42-75.0); Platelet Count 282 K/mm3 (150-450); Red Blood Count 3.39 M/mm3 (4.2-5.4); Red Cell Distribution Width 14.6 % (11.5-14.0); White Blood Count 11.9 K/mm3 (4.0-10.5)
[2016-10-27 06:45] LABS: BUN/Creatinine Ratio 27.8 (9.0-21.6); Calcium * 7.4 mg/dL (7.9-10.9); Potassium 4.6 mmol/L (3.4-4.6)
[2016-10-27] MEDS: INSULIN LISPRO 100 UNITS/ML VIAL SC SCH ×4 (06:46→21:52)
[2016-10-27] MEDS: glipiZIDE 5 MG TABLET PO SCH (06:46)
[2016-10-27 07:03] LABS: Carbon Dioxide 46.6 mmol/L (24-32.6)
[2016-10-27] MEDS: SACCHAROMYCES BOULARDII 250 MG CAPSULE PO SCH ×2 (09:45→21:50)
[2016-10-27] MEDS: buPROPion HCL 100 MG TABLET PO SCH (09:45)
[2016-10-27] MEDS: DOCUSATE SODIUM 100 MG CAPSULE PO SCH ×2 (09:45→21:50)
[2016-10-27] MEDS: SPIRONOLACTONE 25 MG TABLET PO SCH (09:46)
[2016-10-27] MEDS: LORATADINE 10 MG TABLET PO SCH (09:46)
[2016-10-27] MEDS: HYDROPHILIC OINTMENT 454 APPL JAR TP SCH ×2 (09:46→21:49)
[2016-10-27] MEDS: LISINOPRIL 10 MG TABLET PO SCH (09:49)
[2016-10-27] MEDS: FUROSEMIDE 10 MG/ML VIAL IV SCH ×2 (09:50→21:52)
[2016-10-27] MEDS: FUROSEMIDE 20 MG TABLET PO SCH ×2 (09:50→21:50)
[2016-10-27] MEDS: amLODIPine BESYLATE 5 MG TABLET PO SCH (09:50)
--- NOTE | 2016-10-27 12:51 | PN ---
Subjective - Date and Time Seen Date: 10/27/16 Time: 12:51 Subjective Narrative: continues to improve and feel better each day. coming off bipap at times onto nasal cannula for meals. Objective - Review of Systems Generalized/Overall Review: Reports: Fatigue. Denies: Chills, Fever EENTM: Reports: No Symptoms Reported Respiratory: Reports: Shortness of Breath Cardiac: Reports: Edema Abdominal: Reports: No Symptoms Reported Genitourinary Symptoms: Reports: No Symptoms Reported Musculoskeletal Complaints: Reports: No Symptoms Reported Neurological: Reports: No Symptoms Reported Skin: Reports: No Symptoms Reported Endocrine: Reports: No Symptoms Reported Misc: All systems neg except as marked - Vitals Vitals: Last Vital Signs Temp 36.4 C L 10/27/16 10:18 Pulse 100 10/27/16 11:10 Resp 24 H 10/27/16 11:15 BP 171/66 10/27/16 10:18 Pulse Ox 100 10/27/16 11:19 - Abnormal Lab Findings Abnormal Lab Findings: Abnormal Lab Results 10/26/16 10/27/16 10/27/16 Range/Units 13:27 05:27 06:30 WBC 11.9 H (4.0-10.5) K/mm3 RBC 3.39 L (4.2-5.4) M/mm3 Hgb 10.5 L (12.5-16.0) gm/dL Hct 34.8 L (37.0-47.0) % MCV 102.7 H (78-100) fl MCHC 30.2 L (32-36) g/dl RDW 14.6 H (11.5-14.0) % Immature Gran % (Auto) 0.80 H (0.001-0.429) % Immature Gran # (Auto) 0.09 H (0.000-0.0310) K/mm3 Neutrophils % 88.1 H (42-75.0) % Lymphocytes % 4.0 L (20-51) % Neutrophils # 10.5 H (1.3-6.0) K/mm3 Lymphocytes # 0.5 L (1.5-3.5) k/mm3 pCO2 79.4 H* 62.7 H (32.0-45.0) mmHg pO2 60.0 L (83.0-108.0) mmHg HCO3 48.0 H 38.9 H (21.0-28.0) mmol/L Total CO2 50.4 H 40.8 H (19.0-24.0) mmol/L Base Excess 19.5 H 12.1 H (-2.0-3.0) mmol/L ABG O2 Sat (Measured) 89.5 L (94.0-98.0) % Chloride (97-106) mmol/L Carbon Dioxide (24-32.6) mmol/L Anion Gap (6.8-13.8) mmol/L BUN (3-23) mg/dL Creatinine (0.4-1.4) mg/dL Est GFR (Non-Af Amer) (60-130) mL/min BUN/Creatinine Ratio (9.0-21.6) Random Glucose (70-110) mg/dL Calcium (7.9-10.9) mg/dL 10/27/16 Range/Units 06:30 WBC (4.0-10.5) K/mm3 RBC (4.2-5.4) M/mm3 Hgb (12.5-16.0) gm/dL Hct (37.0-47.0) % MCV (78-100) fl MCHC (32-36) g/dl RDW (11.5-14.0) % Immature Gran % (Auto) (0.001-0.429) % Immature Gran # (Auto) (0.000-0.0310) K/mm3 Neutrophils % (42-75.0) % Lymphocytes % (20-51) % Neutrophils # (1.3-6.0) K/mm3 Lymphocytes # (1.5-3.5) k/mm3 pCO2 (32.0-45.0) mmHg pO2 (83.0-108.0) mmHg HCO3 (21.0-28.0) mmol/L Total CO2 (19.0-24.0) mmol/L Base Excess (-2.0-3.0) mmol/L ABG O2 Sat (Measured) (94.0-98.0) % Chloride 90 L (97-106) mmol/L Carbon Dioxide 46.6 H (24-32.6) mmol/L Anion Gap 5.0 L (6.8-13.8) mmol/L BUN 44 H (3-23) mg/dL Creatinine 1.58 H (0.4-1.4) mg/dL Est GFR (Non-Af Amer) 34 L (60-130) mL/min BUN/Creatinine Ratio 27.8 H (9.0-21.6) Random Glucose 232 H D (70-110) mg/dL Calcium 7.4 L (7.9-10.9) mg/dL - Exam Constitutional: Present: Alert, Cooperative, No distress, Obese ENT Exam: Present: hearing grossly normal Neck: Present: full range of motion Respiratory: Present: no respiratory distress, decreased breath sounds Cardiovascular/Chest: Present: normal peripheral pulses, regular rate, rhythm Abdomen: Present: soft, nontender, obese /Rectal: Present: Exam deferred Extremity: Present: non-tender, lower extremity edema - 2+ lower extremity edema , chronic Skin Exam: Present: normal color, warm/dry, no cyanosis Cauti Physician Documentation - Urinary Catheter Management Urethral (Santiago) Urethral Indwelling: No Date of Insertion: 10/25/16 Time of Insertion: 23:25 Date of Removal: 10/27/16 Time of Removal: 10:07 Assessment/Plan Plan Narrative: Acute on chronic respiratory failure with hypoxia and hypercapnia. - chronic O2 use is NC at 2L - patient came into ER at 90% on 3L O2 and in respiratory distress - CO2 level in ER critical at 99 - started on bipap in ER at 15/2 - had to increase bipap to 20/5 as CO2 level elevated to 119. - continue to wean bipap today - supplement O2 to keep sats greater than 88% given COPD history - Solumedrol 120 mg given 10/25/16 then started at 80 mg iv q 8 hours - decrease solumedrol to 80 mg q 12 hours - monitor patient closely COPD exacerbation/possible pneumonia - solumedrol 40 mg iv x1 given in ER - give an additional dose of 80 mg x1 now, then start 80 mg iv q 8 hours ( 10/25/16) - decrease solumedrol to 80 mg q 12 hours as respiratory status is improving - Antibiotics - Cefepime (broader coverage given that she lives in a care center) - 1 gm q 12 hours - Day #3 - Azithromycin 500 mg iv daily x5 doses - Day #3 - Vancomycin 2 gm x1 dose on 10/25/16 - MRSA nasal swab positive - Vancomycin 2 gm iv q 12 hours - Day #3 - pharmacy to dose - Duonebs QID - Incentive spirometer q 2 hours - vital signs q 4 hours - recheck chest xray in am - recheck labs in am. Bilateral pleural effusion - co-existent infection not excluded per chest xray report (ie: possible pneumonia) - see above for abx ordered - lasix 80 mg iv bid - if persistent, and patient stabilizes, will discuss with family the possibility of thoracentsis - recheck chest xray in am. Acute diastolic CHF exacerbation - lasix 80 mg iv bid - strict I&Os - daily weights - CHF teaching, likely with family given patient's mental retardation (mild) but would involve patient as well. Diabetes - Accu-checks QID - sliding scale insulin prn with accu-checks - consistent carb diet Code status: DNR VTE: lovenox GI Proph: protonix iv. - Problems/Diagnosis (1) Respiratory failure Problem: Acute Qualifiers: Chronicity: acute on chronic Respiratory failure complication: hypoxia and hypercapnia Qualified Code(s): J96.21 - Acute and chronic respiratory failure with hypoxia; J96.22 - Acute and chronic respiratory failure with hypercapnia (2) Bilateral pleural effusion Problem: Acute (3) Diabetes Problem: Chronic Qualifiers: Diabetes mellitus type: type 2 Diabetes mellitus complication status: with hyperglycemia Diabetes mellitus custodial insulin use: without custodial use Qualified Code(s): E11.65 - Type 2 diabetes mellitus with hyperglycemia (4) Morbid (severe) obesity with alveolar hypoventilation Problem: Chronic (5) Pulmonary hypertension Problem: Chronic (6) CHF (congestive heart failure) Problem: Acute Qualifiers: Congestive heart failure type: diastolic Congestive heart failure chronicity: acute Qualified Code(s): I50.31 - Acute diastolic (congestive) heart failure (7) COPD exacerbation Problem: Acute
[2016-10-27] MEDS: AZITHROMYCIN 500 MG in DEXTROSE 5 % IN WATER 250 ML IV SCH ×2 (13:04)
[2016-10-27] MEDS: ENOXAPARIN SODIUM 40 MG/0.4 ML SYRG SC SCH (15:06)
[2016-10-27] MEDS: VANCOMYCIN HCL 2 GM in DEXTROSE 5 % IN WATER 500 ML IV SCH ×2 (17:22)
[2016-10-27] MEDS: PANTOPRAZOLE SODIUM 40 MG in NORMAL SALINE 100 ML IV SCH (22:05)
[2016-10-28] MEDS: CEFEPIME HCL 1 GM in DEXTROSE 5 % IN WATER 100 ML IV SCH ×4 (02:50→14:42)
[2016-10-28] MEDS: METHYLPREDNISOLONE SOD SUCC 80 MG in WATER FOR INJ.,BACTERIOSTATIC 0 ML IV SCH (05:17)
[2016-10-28] MEDS: ALBUTEROL SULFATE/IPRATROPIUM 3 ML NEBU IH SCH ×4 (06:08→19:23)
[2016-10-28] MEDS: INSULIN LISPRO 100 UNITS/ML VIAL SC SCH ×4 (07:16→20:57)
[2016-10-28] MEDS: glipiZIDE 5 MG TABLET PO SCH (07:17)
--- NOTE | 2016-10-28 08:33 | PN ---
Progess Note - Interim Narrative: 10/28/16 08:31 She says she is back to her usual self. O2 sats in the upper 90's. Possible discharge pending CXR. 10/28/16 09:08 CXR shows moderate pleural effusion, bilateral . will refer for possible thoracentesis- for diagnostic/ therapeutic.
[2016-10-28 08:41] LABS: Hematocrit 39.5 % (37.0-47.0); Hemoglobin 11.8 gm/dL (12.5-16.0); Mean Corpuscular Hemoglobin 30.2 pg (27-31); Mean Corpuscular Hgb Conc 29.9 g/dl (32-36); Neutrophil # 9.9 K/mm3 (1.3-6.0); Neutrophil % 88.9 % (42-75.0); Platelet Count 263 K/mm3 (150-450); Red Blood Count 3.91 M/mm3 (4.2-5.4); Red Cell Distribution Width 14.6 % (11.5-14.0); White Blood Count 11.2 K/mm3 (4.0-10.5)
[2016-10-28 08:52] LABS: BUN/Creatinine Ratio 27.3 (9.0-21.6); Calcium * 7.8 mg/dL (7.9-10.9); Estimated Creat Clear 25.8; Potassium 4.2 mmol/L (3.4-4.6)
[2016-10-28] MEDS: SPIRONOLACTONE 25 MG TABLET PO SCH (09:05)
[2016-10-28] MEDS: DOCUSATE SODIUM 100 MG CAPSULE PO SCH ×2 (09:06→20:56)
[2016-10-28] MEDS: LORATADINE 10 MG TABLET PO SCH (09:06)
[2016-10-28] MEDS: SACCHAROMYCES BOULARDII 250 MG CAPSULE PO SCH ×2 (09:06→20:56)
[2016-10-28] MEDS: HYDROPHILIC OINTMENT 454 APPL JAR TP SCH ×2 (09:06→20:55)
[2016-10-28] MEDS: FUROSEMIDE 20 MG TABLET PO SCH ×2 (09:07→20:57)
[2016-10-28] MEDS: FUROSEMIDE 10 MG/ML VIAL IV SCH (09:07)
[2016-10-28] MEDS: amLODIPine BESYLATE 5 MG TABLET PO SCH (09:07)
[2016-10-28] MEDS: buPROPion HCL 100 MG TABLET PO SCH (09:08)
[2016-10-28] MEDS: LISINOPRIL 20 MG TABLET PO SCH (09:08)
[2016-10-28 09:10] LABS: Anion Gap 1.6 mmol/L (6.8-13.8); Carbon Dioxide 51.6 mmol/L (24-32.6)
[2016-10-28 11:18] LABS: Prothrombin Time (Patient) 12.3 Seconds (9.4-11.4)
[2016-10-28 11:28] LABS: INR 1.18 INR (0.90-1.10)
--- NOTE | 2016-10-28 11:58 | ECHO ---
This report is available in the EMR
--- NOTE | 2016-10-28 13:07 | PN ---
Subjective - Date and Time Seen Date: 10/28/16 Time: 13:00 Subjective Narrative: She says she is back to her usual self. O2 sats in the upper 90's. Possible discharge pending CXR. 10/28/16 09:08 CXR shows moderate pleural effusion, bilateral . will refer for possible thoracentesis- for diagnostic/ therapeutic. Discussed with Dr. White. For US guided thoaracentesis today. Objective - Review of Systems Generalized/Overall Review: Denies: Chills, Fever EENTM: Reports: No Symptoms Reported Respiratory: Reports: Shortness of Breath. Denies: Cough, Wheezing Cardiac: Reports: Edema. Denies: Chest Pain, Palpitations Abdominal: Denies: Nausea, Vomiting Genitourinary Symptoms: Denies: Urgency, Frequency Musculoskeletal Complaints: Denies: Joint Pain - Vitals Vitals: Last Vital Signs Temp 36.5 C 10/28/16 10:18 Pulse 76 10/28/16 12:00 Resp 20 10/28/16 10:18 BP 171/93 10/28/16 10:18 Pulse Ox 95 10/28/16 10:18 - Abnormal Lab Findings Abnormal Lab Findings: Abnormal Lab Results 10/28/16 10/28/16 10/28/16 Range/Units 08:34 08:34 08:34 WBC 11.2 H (4.0-10.5) K/mm3 RBC 3.91 L (4.2-5.4) M/mm3 Hgb 11.8 L (12.5-16.0) gm/dL MCV 101.0 H (78-100) fl MCHC 29.9 L (32-36) g/dl RDW 14.6 H (11.5-14.0) % Immature Gran % (Auto) 0.60 H (0.001-0.429) % Immature Gran # (Auto) 0.07 H (0.000-0.0310) K/mm3 Neutrophils % 88.9 H (42-75.0) % Lymphocytes % 3.5 L (20-51) % Neutrophils # 9.9 H (1.3-6.0) K/mm3 Lymphocytes # 0.4 L (1.5-3.5) k/mm3 PT 12.3 H (9.4-11.4) Seconds INR (Anticoag Therapy) 1.18 H (0.90-1.10) INR Chloride 85 L (97-106) mmol/L Carbon Dioxide 51.6 H (24-32.6) mmol/L Anion Gap 1.6 L (6.8-13.8) mmol/L BUN 45 H (3-23) mg/dL Creatinine 1.65 H (0.4-1.4) mg/dL Est GFR (Non-Af Amer) 32 L (60-130) mL/min BUN/Creatinine Ratio 27.3 H (9.0-21.6) Random Glucose 251 H (70-110) mg/dL Calcium 7.8 L (7.9-10.9) mg/dL - Exam Constitutional: Present: Alert, Oriented x3, Cooperative, Morbidly obese ENT Exam: Present: hearing grossly normal Neck: Present: supple Breasts: Present: Exam deferred Respiratory: Present: decreased breath sounds, rales. Absent: No wheezing Cardiovascular/Chest: Present: regular rate, rhythm, no JVD, systolic murmur Abdomen: Present: Normal bowel sounds, soft, nontender, nondistended Extremity: Present: no calf tenderness, lower extremity edema Cauti Physician Documentation - Urinary Catheter Management Urethral (Santiago) Urethral Indwelling: Yes Date of Insertion: 10/25/16 Time of Insertion: 23:25 Date of Removal: 10/27/16 Time of Removal: 10:07 Assessment/Plan - Problems/Diagnosis (1) Respiratory failure Problem: Acute Qualifiers: Chronicity: acute on chronic Respiratory failure complication: hypoxia and hypercapnia Qualified Code(s): J96.21 - Acute and chronic respiratory failure with hypoxia; J96.22 - Acute and chronic respiratory failure with hypercapnia Narrative: acute ( resolved ) on chronic, combined . Is being treated for posssible pneumonia and CHF. (2) Bilateral pleural effusion Problem: Acute Narrative: will do diagnostic and therapeutic thoracentesis. (3) CHF (congestive heart failure) Problem: Acute Qualifiers: Congestive heart failure type: diastolic Congestive heart failure chronicity: acute Qualified Code(s): I50.31 - Acute diastolic (congestive) heart failure Narrative: on IV diuretics (4) Diabetes Problem: Chronic Qualifiers: Diabetes mellitus type: type 2 Diabetes mellitus complication status: with hyperglycemia Diabetes mellitus [facility] insulin use: without [facility] use Qualified Code(s): E11.65 - Type 2 diabetes mellitus with hyperglycemia (5) Morbid (severe) obesity with alveolar hypoventilation Problem: Chronic (6) Pulmonary hypertension Problem: Chronic Narrative: severe, RSVP 70. (7) Pneumonia Problem: Acute
[2016-10-28] MEDS: AZITHROMYCIN 500 MG in DEXTROSE 5 % IN WATER 250 ML IV SCH ×2 (14:37)
[2016-10-28] MEDS ORDERED: VANCOMYCIN HCL LEVEL XX ONE (16:30)
[2016-10-28] MEDS: ENOXAPARIN SODIUM 40 MG/0.4 ML SYRG SC SCH (16:40)
[2016-10-28] MEDS: PANTOPRAZOLE SODIUM 40 MG in NORMAL SALINE 100 ML IV SCH (22:02)
[2016-10-29] MEDS: CEFEPIME HCL 1 GM in DEXTROSE 5 % IN WATER 100 ML IV SCH ×4 (03:06→16:50)
[2016-10-29 05:23] LABS: Hematocrit 37.1 % (37.0-47.0); Hemoglobin 11.2 gm/dL (12.5-16.0); Mean Cell Volume 100.5 fl (78-100); Mean Corpuscular Hemoglobin 30.4 pg (27-31); Mean Corpuscular Hgb Conc 30.2 g/dl (32-36); Mean Platelet Volume 9.5 fl (6.0-9.5); Platelet Count 245 K/mm3 (150-450); Red Blood Count 3.69 M/mm3 (4.2-5.4); Red Cell Distribution Width 14.6 % (11.5-14.0); White Blood Count 11.3 K/mm3 (4.0-10.5)
[2016-10-29 05:31] LABS: Total Cells Counted 100
[2016-10-29 05:38] LABS: Anion Gap 4.8 mmol/L (6.8-13.8); BUN/Creatinine Ratio 32.1 (9.0-21.6); Calcium * 7.4 mg/dL (7.9-10.9); Estimated Creat Clear 25.8; Potassium 3.9 mmol/L (3.4-4.6)
[2016-10-29 05:43] LABS: Carbon Dioxide 48.1 mmol/L (24-32.6)
[2016-10-29 05:54] LABS: Eosinophil 1 % (0-3); Hypochromia 1+; Lymphocyte 12 % (20-51); Monocyte 11 % (0-9); Neutrophil 76 % (42-75); Neutrophil # 8.6 K/mm3 (1.3-6.0); Platelet Estimate Normal (NORMAL)
[2016-10-29] MEDS: ALBUTEROL SULFATE/IPRATROPIUM 3 ML NEBU IH SCH ×4 (06:11→19:09)
[2016-10-29] MEDS: INSULIN LISPRO 100 UNITS/ML VIAL SC SCH ×4 (07:39→20:59)
[2016-10-29] MEDS: glipiZIDE 5 MG TABLET PO SCH (07:40)
[2016-10-29] MEDS: LORATADINE 10 MG TABLET PO SCH (09:24)
[2016-10-29] MEDS: buPROPion HCL 100 MG TABLET PO SCH (09:24)
[2016-10-29] MEDS: SPIRONOLACTONE 25 MG TABLET PO SCH (09:24)
[2016-10-29] MEDS: LISINOPRIL 20 MG TABLET PO SCH (09:24)
[2016-10-29] MEDS: HYDROPHILIC OINTMENT 454 APPL JAR TP SCH ×2 (09:24→20:57)
[2016-10-29] MEDS: FUROSEMIDE 20 MG TABLET PO SCH ×2 (09:24→21:02)
[2016-10-29] MEDS: amLODIPine BESYLATE 5 MG TABLET PO SCH (09:24)
[2016-10-29] MEDS: DOCUSATE SODIUM 100 MG CAPSULE PO SCH ×2 (09:24→20:57)
[2016-10-29] MEDS: SACCHAROMYCES BOULARDII 250 MG CAPSULE PO SCH ×2 (09:24→20:57)
--- NOTE | 2016-10-29 14:20 | PN ---
Subjective - Date and Time Seen Date: 10/29/16 Time: 10:05 Subjective Narrative: feeling good, denies needs. smiling. Objective - Review of Systems Generalized/Overall Review: Reports: No Symptoms Reported EENTM: Reports: No Symptoms Reported Respiratory: Reports: No Symptoms Reported Cardiac: Reports: No Symptoms Reported Abdominal: Reports: No Symptoms Reported Genitourinary Symptoms: Reports: No Symptoms Reported Musculoskeletal Complaints: Reports: No Symptoms Reported Neurological: Reports: No Symptoms Reported Skin: Reports: No Symptoms Reported Endocrine: Reports: No Symptoms Reported Misc: All systems neg except as marked - Vitals Vitals: Last Vital Signs Temp 35.7 C L 10/29/16 11:12 Pulse 77 10/29/16 11:12 Resp 18 10/29/16 11:12 BP 136/63 10/29/16 11:12 Pulse Ox 100 10/29/16 11:12 - Abnormal Lab Findings Abnormal Lab Findings: Abnormal Lab Results 10/28/16 10/29/16 10/29/16 Range/Units 16:31 04:55 04:55 WBC 11.3 H (4.0-10.5) K/mm3 RBC 3.69 L (4.2-5.4) M/mm3 Hgb 11.2 L (12.5-16.0) gm/dL MCV 100.5 H (78-100) fl MCHC 30.2 L (32-36) g/dl RDW 14.6 H (11.5-14.0) % Neutrophils % (Manual) 76 H (42-75) % Lymphocytes % (Manual) 12 L (20-51) % Monocytes % (Manual) 11 H (0-9) % Neutrophils # (Manual) 8.6 H (1.3-6.0) K/mm3 Lymphocytes # (Manual) 1.4 L (1.5-3.5) k/mm3 Monocytes # (Manual) 1.2 H (0.0-1.0) k/mm3 Chloride 88 L (97-106) mmol/L Carbon Dioxide 48.1 H (24-32.6) mmol/L Anion Gap 4.8 L (6.8-13.8) mmol/L BUN 53 H (3-23) mg/dL Creatinine 1.65 H (0.4-1.4) mg/dL Est GFR (Non-Af Amer) 32 L (60-130) mL/min BUN/Creatinine Ratio 32.1 H (9.0-21.6) Random Glucose 114 H D (70-110) mg/dL Calcium 7.4 L (7.9-10.9) mg/dL Vancomycin Trough 26.4 H (10.0-20.0) mcg/mL - Exam Constitutional: Present: Alert, Cooperative, No distress, Morbidly obese ENT Exam: Present: hearing grossly normal Neck: Present: supple Breasts: Present: Exam deferred Respiratory: Present: chest non-tender, no respiratory distress, decreased breath sounds Cardiovascular/Chest: Present: normal peripheral pulses, regular rate, rhythm Abdomen: Present: soft, nontender, obese /Rectal: Present: Exam deferred Extremity: Present: non-tender, lower extremity edema - 2+ lower extremity edema , chronic, due to venous stasis Skin Exam: Present: normal color, warm/dry, no cyanosis Cauti Physician Documentation - Urinary Catheter Management Urethral (Santiago) Urethral Indwelling: No Date of Insertion: 10/25/16 Time of Insertion: 23:25 Date of Removal: 10/27/16 Time of Removal: 10:07 Assessment/Plan Plan Narrative: Acute on chronic respiratory failure with hypoxia and hypercapnia. - chronic O2 use is NC at 2L - patient came into ER at 90% on 3L O2 and in respiratory distress - CO2 level in ER critical at 99 - started on bipap in ER at 15/2 - had to increase bipap to 20/5 as CO2 level elevated to 119. - currently off bipap on NC today - supplement O2 to keep sats greater than 88% given COPD history - IV steriods have been discontinued. - monitor patient closely COPD exacerbation/possible pneumonia - iv steroids have been discontinued - Antibiotics - Cefepime (broader coverage given that she lives in a care center) - 1 gm q 12 hours - Day #5 - Azithromycin 500 mg iv daily x5 doses - Day #5 (last day) - Vancomycin 2 gm x1 dose on 10/25/16 - MRSA nasal swab positive - Vancomycin 2 gm iv q 12 hours - Day #5 - pharmacy to dose - Duonebs QID - Incentive spirometer q 2 hours - vital signs q 4 hours - recheck labs in am. Bilateral pleural effusion - co-existent infection not excluded per chest xray report (ie: possible pneumonia) - see above for abx ordered - lasix 60 mg po bid (home dose) Acute diastolic CHF exacerbation - lasix 60 mg po bid (home dose) - strict I&Os - daily weights - CHF teaching, likely with family given patient's mental retardation (mild) but would involve patient as well. Diabetes - Accu-checks QID - sliding scale insulin prn with accu-checks - consistent carb diet Plan: back to care center on monday. Code status: DNR VTE: lovenox GI Proph: protonix iv. - Problems/Diagnosis (1) Respiratory failure Problem: Acute Qualifiers: Chronicity: acute on chronic Respiratory failure complication: hypoxia and hypercapnia Qualified Code(s): J96.21 - Acute and chronic respiratory failure with hypoxia; J96.22 - Acute and chronic respiratory failure with hypercapnia (2) Bilateral pleural effusion Problem: Acute (3) Diabetes Problem: Chronic Qualifiers: Diabetes mellitus type: type 2 Diabetes mellitus complication status: with hyperglycemia Diabetes mellitus skilled nursing insulin use: without skilled nursing use Qualified Code(s): E11.65 - Type 2 diabetes mellitus with hyperglycemia (4) Morbid (severe) obesity with alveolar hypoventilation Problem: Chronic (5) Pulmonary hypertension Problem: Chronic (6) CHF (congestive heart failure) Problem: Acute Qualifiers: Congestive heart failure type: diastolic Congestive heart failure chronicity: acute Qualified Code(s): I50.31 - Acute diastolic (congestive) heart failure (7) COPD exacerbation Problem: Acute
[2016-10-29] MEDS: AZITHROMYCIN 500 MG in DEXTROSE 5 % IN WATER 250 ML IV SCH ×2 (15:41)
[2016-10-29] MEDS: ENOXAPARIN SODIUM 40 MG/0.4 ML SYRG SC SCH (16:50)
[2016-10-29] MEDS: VANCOMYCIN HCL 1.75 GM in DEXTROSE 5 % IN WATER 500 ML IV SCH ×2 (17:37)
[2016-10-29] MEDS: PANTOPRAZOLE SODIUM 40 MG in NORMAL SALINE 100 ML IV SCH (22:06)
[2016-10-30] MEDS: CEFEPIME HCL 1 GM in DEXTROSE 5 % IN WATER 100 ML IV SCH ×4 (02:25→14:48)
[2016-10-30 06:25] LABS: Hematocrit 37.5 % (37.0-47.0); Hemoglobin 11.5 gm/dL (12.5-16.0); Mean Corpuscular Hemoglobin 30.7 pg (27-31); Mean Corpuscular Hgb Conc 30.7 g/dl (32-36); Mean Platelet Volume 9.4 fl (6.0-9.5); Neutrophil # 8.3 K/mm3 (1.3-6.0); Neutrophil % 77.7 % (42-75.0); Platelet Count 245 K/mm3 (150-450); Red Blood Count 3.75 M/mm3 (4.2-5.4); Red Cell Distribution Width 14.6 % (11.5-14.0); White Blood Count 10.7 K/mm3 (4.0-10.5)
[2016-10-30 06:33] LABS: BUN/Creatinine Ratio 32.7 (9.0-21.6); Calcium * 7.5 mg/dL (7.9-10.9); Estimated Creat Clear 27.9; Potassium 4.6 mmol/L (3.4-4.6)
[2016-10-30] MEDS: INSULIN LISPRO 100 UNITS/ML VIAL SC SCH ×4 (06:46→21:00)
[2016-10-30] MEDS: glipiZIDE 5 MG TABLET PO SCH (06:46)
[2016-10-30 06:47] LABS: Anion Gap 2.6 mmol/L (6.8-13.8)
[2016-10-30] MEDS: ALBUTEROL SULFATE/IPRATROPIUM 3 ML NEBU IH SCH ×4 (06:48→19:33)
[2016-10-30] MEDS ORDERED: predniSONE 20 MG TABLET PO SCH ×2 (09:45→10:48)
[2016-10-30] MEDS: buPROPion HCL 100 MG TABLET PO SCH (10:16)
[2016-10-30] MEDS: amLODIPine BESYLATE 5 MG TABLET PO SCH (10:16)
[2016-10-30] MEDS: DOCUSATE SODIUM 100 MG CAPSULE PO SCH ×2 (10:17→20:59)
[2016-10-30] MEDS: SACCHAROMYCES BOULARDII 250 MG CAPSULE PO SCH ×2 (10:17→20:59)
[2016-10-30] MEDS: LORATADINE 10 MG TABLET PO SCH (10:17)
[2016-10-30] MEDS: FUROSEMIDE 20 MG TABLET PO SCH ×2 (10:18→21:00)
[2016-10-30] MEDS: LISINOPRIL 20 MG TABLET PO SCH (10:18)
[2016-10-30] MEDS: SPIRONOLACTONE 25 MG TABLET PO SCH (10:18)
[2016-10-30] MEDS: HYDROPHILIC OINTMENT 454 APPL JAR TP SCH ×2 (10:20→20:58)
--- NOTE | 2016-10-30 11:18 | PN ---
Subjective - Date and Time Seen Date: 10/30/16 Time: 10:45 Subjective Narrative: states that she is feeling well. denies cp, dyspnea. Objective - Review of Systems Generalized/Overall Review: Reports: No Symptoms Reported EENTM: Reports: No Symptoms Reported Respiratory: Reports: No Symptoms Reported Cardiac: Reports: No Symptoms Reported Abdominal: Reports: No Symptoms Reported Genitourinary Symptoms: Reports: No Symptoms Reported Musculoskeletal Complaints: Reports: No Symptoms Reported Neurological: Reports: No Symptoms Reported Skin: Reports: No Symptoms Reported Endocrine: Reports: No Symptoms Reported Misc: All systems neg except as marked - Vitals Vitals: Last Vital Signs Temp 35.8 C L 10/30/16 10:23 Pulse 71 10/30/16 10:33 Resp 20 10/30/16 10:33 BP 116/45 10/30/16 10:23 Pulse Ox 100 10/30/16 10:23 - Abnormal Lab Findings Abnormal Lab Findings: Abnormal Lab Results 10/30/16 10/30/16 Range/Units 06:05 06:05 WBC 10.7 H (4.0-10.5) K/mm3 RBC 3.75 L (4.2-5.4) M/mm3 Hgb 11.5 L (12.5-16.0) gm/dL MCHC 30.7 L (32-36) g/dl RDW 14.6 H (11.5-14.0) % Immature Gran % (Auto) 0.50 H (0.001-0.429) % Immature Gran # (Auto) 0.05 H (0.000-0.0310) K/mm3 Neutrophils % 77.7 H (42-75.0) % Lymphocytes % 7.6 L (20-51) % Monocytes % 9.8 H (0.0-9) % Eosinophils % 4.3 H (0.0-3.0) % Neutrophils # 8.3 H (1.3-6.0) K/mm3 Lymphocytes # 0.8 L (1.5-3.5) k/mm3 Monocytes # 1.1 H (0.0-1.0) k/mm3 Chloride 87 L (97-106) mmol/L Carbon Dioxide 49.0 H (24-32.6) mmol/L Anion Gap 2.6 L (6.8-13.8) mmol/L BUN 50 H (3-23) mg/dL Creatinine 1.53 H (0.4-1.4) mg/dL Est GFR (Non-Af Amer) 35 L (60-130) mL/min BUN/Creatinine Ratio 32.7 H (9.0-21.6) Random Glucose 122 H (70-110) mg/dL Calcium 7.5 L (7.9-10.9) mg/dL - Exam Constitutional: Present: Alert, Cooperative, No distress, Morbidly obese ENT Exam: Present: hard of hearing Neck: Present: full range of motion, supple Breasts: Present: Exam deferred Respiratory: Present: chest non-tender, normal breath sounds, no respiratory distress Cardiovascular/Chest: Present: normal peripheral pulses, regular rate, rhythm Abdomen: Present: soft, nontender, obese /Rectal: Present: Exam deferred Extremity: Present: non-tender, lower extremity edema - 2+ pitting edema bilat from chronic venous stasis Skin Exam: Present: normal color, warm/dry, no cyanosis Cauti Physician Documentation - Urinary Catheter Management Urethral (Santiago) Urethral Indwelling: No Date of Insertion: 10/25/16 Time of Insertion: 23:25 Date of Removal: 10/27/16 Time of Removal: 10:07 Assessment/Plan Plan Narrative: Acute on chronic respiratory failure with hypoxia and hypercapnia. - chronic O2 use is NC at 2L - patient came into ER at 90% on 3L O2 and in respiratory distress - CO2 level in ER critical at 99 - started on bipap in ER at 15/2 - had to increase bipap to 20/5 as CO2 level elevated to 119. - currently off bipap on NC today - supplement O2 to keep sats greater than 88% given COPD history - IV steriods have been discontinued. - decrease oral prednisone to 40 mg po daily. - monitor patient closely COPD exacerbation/possible pneumonia - iv steroids have been discontinued - Antibiotics - Cefepime (broader coverage given that she lives in a care center) - 1 gm q 12 hours - Day #6 - Azithromycin 500 mg iv daily x5 doses - Day #5 (completed) - Vancomycin 2 gm x1 dose on 10/25/16 - MRSA nasal swab positive - Vancomycin gm iv q 12 hours - Day #6 - pharmacy to dose - Incentive spirometer q 2 hours - cornet q 2 hours - vital signs q 4 hours - recheck labs in am. Bilateral pleural effusion - co-existent infection not excluded per chest xray report (ie: possible pneumonia) - see above for abx ordered - lasix 60 mg po bid (home dose) Acute diastolic CHF exacerbation - lasix 60 mg po bid (home dose) - strict I&Os - daily weights - CHF teaching, likely with family given patient's mental retardation (mild) but would involve patient as well. Diabetes - Accu-checks QID - sliding scale insulin prn with accu-checks - consistent carb diet Plan: back to care center on monday. 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
[2016-10-30] MEDS: ENOXAPARIN SODIUM 40 MG/0.4 ML SYRG SC SCH (15:28)
[2016-10-30] MEDS: VANCOMYCIN HCL 1.75 GM in DEXTROSE 5 % IN WATER 500 ML IV SCH ×2 (16:58)
[2016-10-30] MEDS: PANTOPRAZOLE SODIUM 40 MG TABLET.EC PO SCH (17:25)
[2016-10-31] MEDS: CEFEPIME HCL 1 GM in DEXTROSE 5 % IN WATER 100 ML IV SCH ×2 (02:58)
[2016-10-31 05:57] LABS: Hematocrit 36.7 % (37.0-47.0); Hemoglobin 11.6 gm/dL (12.5-16.0); Mean Cell Volume 98.9 fl (78-100); Mean Corpuscular Hemoglobin 31.3 pg (27-31); Mean Corpuscular Hgb Conc 31.6 g/dl (32-36); Mean Platelet Volume 9.6 fl (6.0-9.5); Neutrophil # 10.6 K/mm3 (1.3-6.0); Neutrophil % 82.9 % (42-75.0); Platelet Count 230 K/mm3 (150-450); Red Blood Count 3.71 M/mm3 (4.2-5.4); Red Cell Distribution Width 14.6 % (11.5-14.0); White Blood Count 12.7 K/mm3 (4.0-10.5)
[2016-10-31 06:36] LABS: BUN/Creatinine Ratio 35.3 (9.0-21.6); Blood Urea Nitrogen 55 mg/dL (3-23); Calcium * 7.3 mg/dL (7.9-10.9); Chloride 88 mmol/L (97-106); Estimated Creat Clear 27.3; Glucose * 120 mg/dL (70-110); Potassium 4.3 mmol/L (3.4-4.6); Sodium 136 mmol/L (132-142)
[2016-10-31 06:50] LABS: Carbon Dioxide 55.7 mmol/L (24-32.6)
[2016-10-31] MEDS: glipiZIDE 5 MG TABLET PO SCH (06:55)
[2016-10-31] MEDS: PANTOPRAZOLE SODIUM 40 MG TABLET.EC PO SCH (06:55)
[2016-10-31] MEDS: INSULIN LISPRO 100 UNITS/ML VIAL SC SCH ×2 (06:59→11:47)
[2016-10-31] MEDS: DOCUSATE SODIUM 100 MG CAPSULE PO SCH (09:52)
[2016-10-31] MEDS: SPIRONOLACTONE 25 MG TABLET PO SCH (09:52)
[2016-10-31] MEDS: LORATADINE 10 MG TABLET PO SCH (09:52)
[2016-10-31] MEDS: buPROPion HCL 100 MG TABLET PO SCH (09:52)
[2016-10-31] MEDS: SACCHAROMYCES BOULARDII 250 MG CAPSULE PO SCH (09:53)
[2016-10-31] MEDS: FUROSEMIDE 20 MG TABLET PO SCH (09:54)
[2016-10-31] MEDS: amLODIPine BESYLATE 5 MG TABLET PO SCH (09:55)
[2016-10-31] MEDS: LISINOPRIL 20 MG TABLET PO SCH (09:55)
[2016-10-31 09:58] VITALS: BP 109/79
[2016-10-31] MEDS: HYDROPHILIC OINTMENT 454 APPL JAR TP SCH (09:58)
[2016-10-31] MEDS: ALBUTEROL SULFATE/IPRATROPIUM 3 ML NEBU IH SCH (10:12)
--- NOTE | 2016-10-31 10:12 | DS ---
(1) Respiratory failure Problem: Acute Qualifiers: Chronicity: acute on chronic Respiratory failure complication: hypoxia and hypercapnia Qualified Code(s): J96.21 - Acute and chronic respiratory failure with hypoxia; J96.22 - Acute and chronic respiratory failure with hypercapnia (2) Bilateral pleural effusion Problem: Acute (3) Diabetes Problem: Chronic Qualifiers: Diabetes mellitus type: type 2 Diabetes mellitus complication status: with hyperglycemia Diabetes mellitus mcc insulin use: without terminologist use Qualified Code(s): E11.65 - Type 2 diabetes mellitus with hyperglycemia (4) Morbid (severe) obesity with alveolar hypoventilation Problem: Chronic (5) Pulmonary hypertension Problem: Chronic (6) CHF (congestive heart failure) Problem: Acute Qualifiers: Congestive heart failure type: diastolic Congestive heart failure chronicity: acute Qualified Code(s): I50.31 - Acute diastolic (congestive) heart failure (7) COPD exacerbation Problem: Acute Description of Stay: Zuleyma is a 76 year old female resident of [facility], Patient of Dr. Bird with a PMH of chronic respiratory failure (baseline O2 at 2L nc), DM T2, COPD, diastolic heart failure (last echo 12/2013 showed mild LVH with normal ef, diastolic dysfunction, mild TR, trace AK, pulmonary HTN with RVSP >60 ), and morbid obesity who presented to the ER today with c/o dyspnea and weakness. Patient was previously seen in the ER 10/24/16 where CXR showed findings concerning for CHF with co-existent infection not excluded. Patient was discharged from the ED on 10/24/16 with scripts for doxycycline 100 mg bid and prednisone. ER evaluation today revealed anemia with hgb/hct at 11.1/38.7, elevated wbc at 12.1. bnp 1172. trop negative. creatinine 1.58 (baseline 1.4-1.7 ). ABG showed pCO2 99.5, pO2 52.4, [id number], pH 7.28, O2 sat 79.7. Chest xray showed bilateral pleural effusions with basilar consolidations and cardiomegaly. Patient was given duoneb treatment, lasix 20 mg iv x1 and solumedrol 40 mg iv x1 in the ER and started on bipap at 15/5. Patient was admitted for Acute on chronic respiratory failure with hypoxia and hypercabnia, COPD exac, diastolic heart failure exacerbation. Of note, patient is mildly mentally retarded and is not mentally competent to make her own decisions. All legal documents are signed by her POA. 10/25/16 - started on bipap, iv steroids started, iv cefepime started, iv azithromycin started, iv vancomycin started. lasix IV bid started. breathing treatments. follow ABG. 10/26/16 - cont IV steroids and IV antibiotics. start to wean bipap as able. respiratory status improving. cont iv lasix bid. 10/27/16 - cont iv steroid and iv antibiotics. continue to wean bipap. cont breathing treatments. bipap mostly at night. abg improved. wean iv steroids. 10/28/16 - cont iv diuretics and iv antibiotics. now on nasal cannula. bipap prn. 10/29/16 - change lasix to po. stop iv steroids. cont iv antibiotics. 10/30/16 - continue iv antibiotics and neb treatments. 10/31/16 - stable for discharge. Procedures Performed: none Discharge Disposition: [facility] Disposition: [facility] Condition: Undetermined Discharge Activity: Activity as tolerated Discharge Diet: Consistent carbs Discharge Level of Care:: SNF - Care Home Care Home Therapy: Physicial Therapy, Occupation Therapy Problem Oriented Discharge Instructions to Patient/Family: Chronic Obstructive Pulmonary Disease Exacerbation, [id number] Additional Patient Instructions (free text): Follow up with Dr. Bird on 11/15/16 at 10:45am. Continue O2 via NC to keep sats above 90% New meds: Prednisone 40 mg po daily x 5 days Levaquin 750 mg po daily x 5 days. Prescriptions (Any new or edited meds): Levofloxacin [Levaquin] 750 mg PO QDIPM #5 tablet predniSONE [Prednisone] 40 mg PO DAILY #5 tablet Complete Home Medications List: Complete Home Medication List: Albuterol Sulfate/Ipratropium [Duoneb 2.5-0.5MG/3ML Soln] 3 ml INH QID PRN 12/19 Ciclopirox/Skin Cleanser No.[id number] [Ciclodan 0.77% Cream Kit] 1 appl TP DAILY PRN Lisinopril [Zestril] 10 mg PO DAILY 12/19/13 Nystatin [Nystop] 1 appl TP BID PRN 12/19/13 Pimecrolimus [Elidel] 1 appl TP DAILY PRN 12/19/13 Docusate Sodium [Colace] 100 mg PO BID 10/05/14 Albuterol Sulfate [Albuterol Sulfate 2.5 MG/3 ML] 2.5 mg IH Q4H PRN 10/24/16 Bupropion HCl 75 mg PO DAILY 10/24/16 Fexofenadine HCl 60 mg PO DAILY 10/24/16 Furosemide [Lasix] 60 mg PO BID 10/24/16 Hydrophilic Ointment [Aquaphilic Ointment] 1 appl TP BID 10/24/16 Magnesium Hydroxide [Milk Of Magnesia] 30 ml PO DAILY PRN 10/24/16 Sodium Chloride [Saline Nasal Mist] 2 spray NS BID PRN 10/24/16 Spironolactone [Aldactone] 25 mg PO DAILY 10/24/16 amLODIPine BESYLATE [Norvasc] 5 mg PO DAILY 10/24/16 glipiZIDE [Glipizide] 5 mg PO DAILY 10/24/16 Levofloxacin [Levaquin] 750 mg PO QDIPM #5 tablet 10/31/16 predniSONE [Prednisone] 40 mg PO DAILY #5 tablet 10/31/16
== END 2016-10-31 13:25 | DRG 189 ==
LOC: ER 09:32 → MS 10:49 → OBSVTOIN 13:14
PROVIDERS: ADMIT Nurse Practitioner Critical Care Medicine; ATTEND Internal Medicine
PROC: 5A09457 Assistance with Respiratory Ventilation, 24-96 Consecutive Hours, Continuous Positive Airway Pressure (ICD-10-PCS; principal; 2016-10-25)
PROC: 4A033R1 Measurement of Arterial Saturation, Peripheral, Percutaneous Approach (ICD-10-PCS; 2016-10-25)
PROC: B246ZZZ Ultrasonography of Right and Left Heart (ICD-10-PCS; 2016-10-27)
DX: J96.21 Acute and chronic respiratory failure with hypoxia (principal); I50.31 Acute diastolic (congestive) heart failure; J44.1 Chronic obstructive pulmonary disease with (acute) exacerbation; E66.2 Morbid (severe) obesity with alveolar hypoventilation; Z68.42 Body mass index [BMI] 45.0-49.9, adult; I27.2 Other secondary pulmonary hypertension; E11.9 Type 2 diabetes mellitus without complications; Z79.4 Long term (current) use of insulin; Z79.899 Other long term (current) drug therapy; Z71.3 Dietary counseling and surveillance

== ENCOUNTER 2016-11-24 02:56 | Inpatient (IN) | payer MEDICARE, OTHER ==
[2016-11-24 03:23] LABS: Hematocrit 35.3 % (37.0-47.0); Hemoglobin 10.8 gm/dL (12.5-16.0); Mean Cell Volume 101.4 fl (78-100); Mean Corpuscular Hgb Conc 30.6 g/dl (32-36); Mean Platelet Volume 9.5 fl (6.0-9.5); Neutrophil # 11.5 K/mm3 (1.3-6.0); Neutrophil % 78.3 % (42-75.0); Platelet Count 308 K/mm3 (150-450); Red Blood Count 3.48 M/mm3 (4.2-5.4); Red Cell Distribution Width 14.3 % (11.5-14.0); White Blood Count 14.6 K/mm3 (4.0-10.5)
--- NOTE | 2016-11-24 03:31 | ERNOTE ---
Dyspnea - General Presenting Symptoms: shortness of breath Time Seen by Provider: 11/24/16 03:07 Source: EMS notes reviewed, retirement records Exam Limitations: no limitations - Immun/Allergies/Home Medications Immunizations: IMMUNIZATION HX Immunizations Up to Date Yes History of Influenza Vaccine No Hx Pneumococcal Vaccination Yes Allergies/Adverse Reactions: Allergies Penicillins Allergy (Verified 11/24/16 03:08) Home Medications: HOME MEDICATIONS Albuterol Sulfate/Ipratropium [Duoneb 2.5-0.5MG/3ML Soln] 3 ml INH QID PRN 12/19 [Last Taken 12/11/13] Ciclopirox/Skin Cleanser No.28 [Ciclodan 0.77% Cream Kit] 1 appl TP DAILY PRN [Last Taken Unknown] Lisinopril [Zestril] 10 mg PO DAILY 12/19/13 [Last Taken 12/19/13] Docusate Sodium [Colace] 100 mg PO BID 10/05/14 [Last Taken Unknown] Albuterol Sulfate [Albuterol Sulfate 2.5 MG/3 ML] 2.5 mg IH Q4H PRN 10/24/16 [ Last Taken Unknown] Bupropion HCl 75 mg PO DAILY 10/24/16 [Last Taken Unknown] Fexofenadine HCl 60 mg PO DAILY 10/24/16 [Last Taken Unknown] Furosemide [Lasix] 60 mg PO BID 10/24/16 [Last Taken Unknown] Hydrophilic Ointment [Aquaphilic Ointment] 1 appl TP BID 10/24/16 [Last Taken Unknown] Magnesium Hydroxide [Milk Of Magnesia] 30 ml PO DAILY PRN 10/24/16 [Last Taken Unknown] Sodium Chloride [Saline Nasal Mist] 2 spray NS BID PRN 10/24/16 [Last Taken Unknown] Spironolactone [Aldactone] 25 mg PO DAILY 10/24/16 [Last Taken Unknown] amLODIPine BESYLATE [Norvasc] 5 mg PO DAILY 10/24/16 [Last Taken Unknown] glipiZIDE [Glipizide] 5 mg PO DAILY 10/24/16 [Last Taken Unknown] - History of Present Illness Narrative: [facility] reported that the patient was having shortness of breath and SaO2 in the 70's. Staff tried albuterol and oxygen but could not get SaO2 above 80% . EMS arrived and put pt on 3 l/ nc and kept SaO2 above 90%. 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 Absent: chest pain Gastrointestinal/Abdominal: Absent: nausea, vomiting Genitourinary: Present: no symptoms reported Musculoskeletal: Present: no symptoms reported Skin: Present: no symptoms reported Neurological: Present: no symptoms reported Endocrine: Present: no symptoms reported Hematologic/Lymphatic: Present: no symptoms reported Psych: Present: no symptoms reported - Patient's Past Medical History Patient History - Medical: Cataracts, Diabetes Type 2 Insulin Dependent, Obesity , Other Patient History - Cardiac/Respiratory: CHF, COPD, Hypertension, Hyperlipidemia Patient History - Cancer: No Hx of Cancer Patient History - Surgical Procedures: Cataracts, Hysterectomy, Other Patient History - Other: None - Family History Father Family History - Medical: No pertinent hx Mother Family History - Medical: No pertinent hx - Social History Living Situations: retirement Psych History: Hx of Depression, Current tx/ever been on anti-depressants or anti-anxiety meds Smoking Status: Never smoker Alcohol Use: none Drug Use: none - Immunizations Immunizations Up to Date: Yes Hx Pneumococcal Vaccination: Yes History of Influenza Vaccine: No Physical Exam - Physical Exam General Appearance: Present: wd/wn, alert, mild distress, obese Head Exam: Present: normal inspection, no evidence of injury Eye Exam: Normal inspection: bilateral, PERRL: bilateral Ears, Nose, Throat: Present: normal ENT inspection Neck: Present: limited range of motion Respiratory: Present: decreased breath sounds Cardiovascular/Chest: Present: regular rate, rhythm Extremity Exam: Present: extremity edema - 2+ bilateral LE. Neurological Exam: Present: alert, oriented, normal mood/affect Skin Exam: Present: skin rash - erythematous bilateral LE. ED Progress - Results and Orders Patient's Lab Results:: I have reviewed the patient's lab results. Results and Orders: Laboratory Tests 11/24/16 11/24/16 03:07 03:07 WBC 14.6 H Hgb 10.8 L Hct 35.3 L Plt Count 308 Neutrophils % 78.3 H pCO2 73.5 H* pO2 58.6 L HCO3 39.7 H Total CO2 41.9 H Base Excess 11.5 H ABG pH 7.35 ABG O2 Sat (Measured) 87.9 L Laboratory Tests 11/24/16 03:07 Sodium 139 Potassium 4.9 H Carbon Dioxide 39.3 H Anion Gap 5.6 L BUN 31 H Creatinine 1.75 H Random Glucose 160 H Calcium 7.8 L Total Bilirubin 0.3 AST 22 Alkaline Phosphatase 109 Troponin I Less than 0.017 B-Natriuretic Peptide 919 H Total Protein 7.0 Albumin 2.4 L - Vital Signs Patient's Vital Signs:: I have reviewed the patient's vital signs. Vital Signs: Vital Signs 11/24/16 03:00 Temperature 36.6 C Pulse Rate 94 Respiratory 24 H Rate Blood Pressure 129/97 O2 Sat by Pulse 96 Oximetry - EKG EKG: NSR EKG read: Interp. by ca - X-Ray X-Ray #1 X-Ray: chest Interpretation: Interp. by me X-ray Comments: poor lung volumes, right pleural effusion with patchy infiltrate. LLL infiltrate - Progress/Reassessment Chief Complaint: Dyspnea Progress:: Improved Progress Note-Subjective: 11/24/16 04:01 Spoke with Monique AGUILAR hospitalist. She agrees with admit. Departure Clinical Impression: Hypercapnia, Pleural effusion Pneumonia Qualifiers: Pneumonia type: due to unspecified organism Laterality: left Lung location: lower lobe of lung Qualified Code(s): J18.1 - Lobar pneumonia, unspecified organism CHF (congestive heart failure) Qualifiers: Congestive heart failure type: combined Congestive heart failure chronicity: acute on chronic Qualified Code(s): I50.43 - Acute on chronic combined systolic (congestive) and diastolic (congestive) heart failure - Departure Disposition: [facility] Condition: Fair
[2016-11-24] MEDS ORDERED: FUROSEMIDE 10 MG/ML VIAL IV ONE ×2 (03:40→05:43)
[2016-11-24] MEDS ORDERED: FUROSEMIDE 10 MG/ML VIAL ONE (03:45)
[2016-11-24 03:52] LABS: ALT 15 U/L (19-67); AST 22 U/L (0-48); Albumin * 2.4 gm/dl (3.4-5.0); Alkaline Phosphatase * 109 U/L (50-170); Anion Gap 5.6 mmol/L (6.8-13.8); BNP * 919 pg/mL (5-325); BUN/Creatinine Ratio 17.7 (9.0-21.6); Bilirubin, Total 0.3 mg/dL (0.0-1.1); Blood Urea Nitrogen 31 mg/dL (3-23); Ca. Corrected For Albumin 8.8 mg/dL (8.4-10.2); Calcium * 7.8 mg/dL (7.9-10.9); Carbon Dioxide 39.3 mmol/L (24-32.6); Chloride 99 mmol/L (97-106); Glucose * 160 mg/dL (70-110); Potassium 4.9 mmol/L (3.4-4.6); Sodium 139 mmol/L (132-142); Troponin I Less than 0.017 ng/ml (0.00-0.10)
[2016-11-24] MEDS ORDERED: CEFEPIME HCL 1 GM in DEXTROSE 5 % IN WATER 100 ML IV ONE ×2 (04:06)
--- NOTE | 2016-11-24 05:39 | HP ---
Chief Complaint - Chief Complaint Date of Service: 11/24/16 Time of Service: 05:28 Chief Complaint: "SOB, Coughing". Source of HPI- Pt; reliable, ERP report, senior care staff report History of Present Illness: Mrs. Herring is a 76-yr-old [place] pt of Dr. Omayra layton with a PMH of: Acute Respiratory Failure, COPD, DM II, HTN, HLD, PVD & Venous Stasis Ulcers. 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 She was then send to the [facility] ER via the Ambulance. By the time EMS arrived, she had recuperated to POX > 90% on 3 lnc. Pt is chronically on 2 L 26/09 for her COPD. She states that for the last two days, she has had worsening SOB. She also reports having increasing productive cough and is able to bring up thick greenish- yellow phlegm. At the ED, she was found to have an elevated WBC of 14,600 with a left shift. Her BNP level was elevated at 919. During physical exam, she in noted to use accessory muscles to breath, has rales on LT base, and has significant generalized edema.The CXR had findings concerning for Pneumonia and CHF. She will need to be admitted inpatient for a minimum of 2 midnights due to HCAP, COPD exacerbation and will also require IV diuretics over several days along with close monitoring of fluid volume status and electrolyte imbalances. - Patient's Past Medical History Patient History - Medical: Cataracts, Diabetes Type 2 Insulin Dependent, Obesity , Other Patient History - Cardiac/Respiratory: CHF, COPD, Hypertension, Hyperlipidemia Patient History - Cancer: No Hx of Cancer Patient History - Surgical Procedures: Cataracts, Hysterectomy, Other Patient History - Other: None - Family History Father Family History - Medical: No pertinent hx Mother Family History - Medical: No pertinent hx - Social History Living Situations: [facility] Psych History: Hx of Depression, Current tx/ever been on anti-depressants or anti-anxiety meds Smoking Status: Never smoker Alcohol Use: none Drug Use: none - Immunizations Immunizations Up to Date: Yes Hx Pneumococcal Vaccination: Yes History of Influenza Vaccine: No Review Of Systems (GEN) - Review of Systems Generalized/Overall Review: Present: Weakness. Absent: Chills, Fever, Malaise, Diaphoresis EENTM: Absent: Eye Pain, Blurred Vision, Throat Swelling Respiratory: Present: Cough, Shortness of Breath Cardiac: Present: Edema. Absent: Chest Pain, Palpitations, Syncope Abdominal: Present: Nausea. Absent: Vomiting, Hematemesis, Abdominal Pain, Constipation, Diarrhea Genitourinary: Present: Dribbling, Incontinent. Absent: Burning, Itching, Urgency, Frequency Musculoskeletal: Absent: Joint Pain, Back Pain Neurological: Present: Weakness. Absent: Headache, Anxiety, Depressed, Emotional Problems Skin: Absent: Dryness, Lesions, Bruising Endocrine: Present: Flushing. Absent: Intolerance to Cold, Intolerance to Heat , Increased Thirst Misc: All systems neg except as marked Immunizations: IMMUNIZATION HX Immunizations Up to Date Yes History of Influenza Vaccine No Hx Pneumococcal Vaccination Yes Allergies/Adverse Reactions: Allergies Allergy/AdvReac Type Severity Reaction Status Date / Time Penicillins Allergy Verified 11/24/16 05:45 Home Medications: HOME MEDICATIONS Ciclopirox/Skin Cleanser No.28 [Ciclodan 0.77% Cream Kit] 1 appl TP DAILY PRN [Last Taken Unknown] Lisinopril [Zestril] 10 mg PO DAILY 12/19/13 [Last Taken 12/19/13] Docusate Sodium [Colace] 100 mg PO BID 10/05/14 [Last Taken Unknown] Albuterol Sulfate [Albuterol Sulfate 2.5 MG/3 ML] 2.5 mg IH Q4H PRN 10/24/16 [ Last Taken Unknown] Bupropion HCl 75 mg PO DAILY 10/24/16 [Last Taken Unknown] Fexofenadine HCl 60 mg PO DAILY 10/24/16 [Last Taken Unknown] Furosemide [Lasix] 60 mg PO BID 10/24/16 [Last Taken Unknown] Hydrophilic Ointment [Aquaphilic Ointment] 1 appl TP BID 10/24/16 [Last Taken Unknown] Magnesium Hydroxide [Milk Of Magnesia] 30 ml PO DAILY PRN 10/24/16 [Last Taken Unknown] Sodium Chloride [Saline Nasal Mist] 2 spray NS BID PRN 10/24/16 [Last Taken Unknown] Spironolactone [Aldactone] 25 mg PO DAILY 10/24/16 [Last Taken Unknown] amLODIPine BESYLATE [Norvasc] 5 mg PO DAILY 10/24/16 [Last Taken Unknown] glipiZIDE [Glipizide] 5 mg PO DAILY 10/24/16 [Last Taken Unknown] Exam - Exam Vital Signs: Vital Signs - Last Taken Temp 36.6 C 11/24/16 03:00 Pulse 84 11/24/16 05:04 Resp 20 11/24/16 05:04 BP 107/57 11/24/16 05:04 Pulse Ox 95 11/24/16 05:04 Constitutional: Present: Alert, Oriented x3, Mild distress, Elderly, Obese ENT Exam: Present: normal ENT inspection, dry mucous membranes, other. 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 , left eye: normal inspection Neck: Present: non-tender, full range of motion, supple Back Exam: Present: normal inspection, no CVA tenderness, muscle spasm Respiratory: Present: decreased breath sounds - RT base, accessory muscle use, rales - LT base, Cardiovascular/Chest: Present: systolic murmur Abdomen: Present: Normal bowel sounds, soft, nontender, obese /Rectal: Present: Exam deferred Extremity: Present: lower extremity edema - Non pitting Skin Exam: Present: other - reddish discolouration on the BLE. Lymphatic: Present: no adenopathy Neurologic: Present: alert, normal mood/affect, oriented x 3 Appearance: Present: appropriate insight Eye contact: Present: cooperative, good eye contact, normal speech Thoughts: Present: normal thought pattern, no apparent hallucination Diagnostic Studies: Laboratory Results WBC 14.6 K/mm3 (4.0-10.5) H 11/24/16 03:07 RBC 3.48 M/mm3 (4.2-5.4) L 11/24/16 03:07 Hgb 10.8 gm/dL (12.5-16.0) L 11/24/16 03:07 Hct 35.3 % (37.0-47.0) L 11/24/16 03:07 MCV 101.4 fl (78-100) H 11/24/16 03:07 MCH 31.0 pg (27-31) 11/24/16 03:07 MCHC 30.6 g/dl (32-36) L 11/24/16 03:07 RDW 14.3 % (11.5-14.0) H 11/24/16 03:07 Plt Count 308 K/mm3 (150-450) 11/24/16 03:07 MPV 9.5 fl (6.0-9.5) 11/24/16 03:07 Immature Gran % (Auto) 4.40 % (0.001-0.429) H 11/24/16 03:07 Immature Gran # (Auto) 0.64 K/mm3 (0.000-0.0310) H 11/24/16 03:07 Neutrophils % 78.3 % (42-75.0) H 11/24/16 03:07 Lymphocytes % 9.0 % (20-51) L 11/24/16 03:07 Monocytes % 5.9 % (0.0-9) 11/24/16 03:07 Eosinophils % 1.9 % (0.0-3.0) 11/24/16 03:07 Basophils % 0.5 % (0.0-1.0) 11/24/16 03:07 Nucleated RBC % 0.0 k/mm3 (0-1) 11/24/16 03:07 Neutrophils # 11.5 K/mm3 (1.3-6.0) H 11/24/16 03:07 Lymphocytes # 1.3 k/mm3 (1.5-3.5) L 11/24/16 03:07 Monocytes # 0.9 k/mm3 (0.0-1.0) 11/24/16 03:07 Eosinophils # 0.3 k/mm3 (0.0-0.7) 11/24/16 03:07 Absolute Basophils 0.1 k/mm3 (0.0-0.1) 11/24/16 03:07 pCO2 73.5 mmHg (32.0-45.0) H* 11/24/16 03:07 pO2 58.6 mmHg (83.0-108.0) L 11/24/16 03:07 HCO3 39.7 mmol/L (21.0-28.0) H 11/24/16 03:07 Total CO2 41.9 mmol/L (19.0-24.0) H 11/24/16 03:07 Base Excess 11.5 mmol/L (-2.0-3.0) H 11/24/16 03:07 ABG pH 7.35 (7.35-7.45) 11/24/16 03:07 ABG O2 Sat (Measured) 87.9 % (94.0-98.0) L 11/24/16 03:07 Sodium 139 mmol/L (132-142) 11/24/16 03:07 Plasma Sodium 140 mmol/L (130-142) 11/24/16 03:07 Potassium 4.9 mmol/L (3.4-4.6) H 11/24/16 03:07 Chloride 99 mmol/L (97-106) 11/24/16 03:07 Carbon Dioxide 39.3 mmol/L (24-32.6) H 11/24/16 03:07 Anion Gap 5.6 mmol/L (6.8-13.8) L 11/24/16 03:07 BUN 31 mg/dL (3-23) H 11/24/16 03:07 Creatinine 1.75 mg/dL (0.4-1.4) H 11/24/16 03:07 Est GFR (Non-Af Amer) 30 mL/min (60-130) L 11/24/16 03:07 BUN/Creatinine Ratio 17.7 (9.0-21.6) 11/24/16 03:07 Random Glucose 160 mg/dL (70-110) H 11/24/16 03:07 Calcium 7.8 mg/dL (7.9-10.9) L 11/24/16 03:07 Calcium Adj for Albumin 8.8 mg/dL (8.4-10.2) 11/24/16 03:07 Total Bilirubin 0.3 mg/dL (0.0-1.1) 11/24/16 03:07 AST 22 U/L (0-48) 11/24/16 03:07 ALT 15 U/L (19-67) L 11/24/16 03:07 Alkaline Phosphatase 109 U/L (50-170) 11/24/16 03:07 Troponin I Less than 0.017 ng/ml (0.00-0.10) 11/24/16 03:07 B-Natriuretic Peptide 919 pg/mL (5-325) H 11/24/16 03:07 Total Protein 7.0 gm/dL (6.2-8.2) 11/24/16 03:07 Albumin 2.4 gm/dl (3.4-5.0) L 11/24/16 03:07 Assessment/Plan - Assessment/Plan (1) Pneumonia Assessment: Pt noted to have SOB, Rales on left base, WBC of 14,600 with a left shift. The CXR had concerns for Pneumonia. Will treat as HCAP and start her on Cefepime 1 gm q 12. Problem: Acute Qualifiers: Pneumonia type: due to unspecified organism Laterality: left Lung location: lower lobe of lung Qualified Code(s): J18.1 - Lobar pneumonia, unspecified organism (2) CHF exacerbation Assessment: Noted to have generalized Edema, has rales on LS, CXR findings consistent with CHF; prominence of Pulmonary vasculature. Given 40 of Lasix and the ED and given additional 80 of Lasix while on the med-surge. Will monitor fluid/volume status and determine daily , daily weight, Strict I/O. BMP in am Problem: Acute (3) COPD exacerbation Assessment: Will start on Duonebs and IV corticosteroids. Problem: Acute (4) Diabetes Assessment: Accuchecks ACHS, Consistent carb diet. She is on glipizide. Will add low dose SSI due to IV solumedrol. Problem: Chronic Qualifiers: Diabetes mellitus type: type 2 Diabetes mellitus complication status: with hyperglycemia Diabetes mellitus snf insulin use: without snf use Qualified Code(s): E11.65 - Type 2 diabetes mellitus with hyperglycemia
[2016-11-24] MEDS ORDERED: FUROSEMIDE 40 MG, FUROSEMIDE 20 MG IV ONE ×2 (07:00)
[2016-11-24] MEDS ORDERED: CICLOPIROX 0.77% TP PRN (07:01)
[2016-11-24] MEDS ORDERED: MAGNESIUM HYDROXIDE 30 ML UDC PO PRN (07:01)
[2016-11-24] MEDS ORDERED: SODIUM CHLORIDE 45 SPRAY BTL NS PRN (07:01)
[2016-11-24] MEDS: ALBUTEROL SULFATE/IPRATROPIUM 3 ML NEBU IH SCH ×4 (07:06→18:13)
[2016-11-24] MEDS: METHYLPREDNISOLONE SOD SUCC 60 MG in WATER FOR INJ.,BACTERIOSTATIC 0 ML IV SCH ×3 (07:37→19:08)
[2016-11-24] MEDS: INSULIN LISPRO 100 UNITS/ML VIAL SC SCH ×4 (07:42→21:20)
[2016-11-24] MEDS ORDERED: FLU VACC QS2017-18(6MOS UP)/PF 60 MCG/0.5 ML SYRINGE IM ONE (08:42)
[2016-11-24] MEDS: HYDROPHILIC OINTMENT 454 APPL JAR TP SCH ×2 (09:46→21:19)
--- NOTE | 2016-11-24 09:47 | PN ---
Progess Note - Interim Narrative: 11/24/16 09:46 I saw and examined this patient. I agree with the narrative and plan of JEFF Fish . We will continue with her IV antibiotics, IV Solumedrol, breathing treatments., IV diuretics for acute COPD exacerbation with HCAP. Will get a speech therapy evaluation .
[2016-11-24] MEDS: DOCUSATE SODIUM 100 MG CAPSULE PO SCH ×2 (09:48→21:19)
[2016-11-24] MEDS: LISINOPRIL 10 MG TABLET PO SCH (09:48)
[2016-11-24] MEDS: glipiZIDE 5 MG TABLET PO SCH (09:48)
[2016-11-24] MEDS: LORATADINE 10 MG TABLET PO SCH (09:48)
[2016-11-24] MEDS: buPROPion HCL 100 MG TABLET PO SCH (09:48)
[2016-11-24] MEDS: amLODIPine BESYLATE 5 MG TABLET PO SCH (09:50)
[2016-11-24] MEDS: ENOXAPARIN SODIUM 30 MG/0.3 ML SYRG SC SCH (16:38)
[2016-11-25] MEDS: ALBUTEROL SULFATE/IPRATROPIUM 3 ML NEBU IH SCH ×5 (00:25→23:34)
[2016-11-25] MEDS: METHYLPREDNISOLONE SOD SUCC 60 MG in WATER FOR INJ.,BACTERIOSTATIC 0 ML IV SCH ×4 (01:00→19:55)
[2016-11-25] MEDS ORDERED: CEFEPIME HCL 1 GM in DEXTROSE 5 % IN WATER 100 ML IV SCH ×2 (04:00)
[2016-11-25 06:01] LABS: Hematocrit 38.5 % (37.0-47.0); Hemoglobin 11.2 gm/dL (12.5-16.0); Mean Cell Volume 104.3 fl (78-100); Mean Corpuscular Hemoglobin 30.4 pg (27-31); Mean Corpuscular Hgb Conc 29.1 g/dl (32-36); Mean Platelet Volume 9.3 fl (6.0-9.5); Platelet Count 354 K/mm3 (150-450); Red Blood Count 3.69 M/mm3 (4.2-5.4); Red Cell Distribution Width 14.2 % (11.5-14.0); White Blood Count 18.3 K/mm3 (4.0-10.5)
[2016-11-25 06:02] LABS: Total Cells Counted 100
[2016-11-25 06:18] LABS: Band 1 % (0-2.0); Dohle Bodies 1+; Immature Granulocyte 3 (0-1); Lymphocyte 6 % (20-51); Neutrophil 90 % (42-75); Neutrophil # 16.5 K/mm3 (1.3-6.0); Platelet Estimate Normal (NORMAL)
[2016-11-25 06:19] LABS: Anion Gap 6.7 mmol/L (6.8-13.8); BUN/Creatinine Ratio 19.2 (9.0-21.6); Calcium * 7.9 mg/dL (7.9-10.9); Carbon Dioxide 41.1 mmol/L (24-32.6); Estimated Creat Clear 21.2; Potassium 4.8 mmol/L (3.4-4.6)
[2016-11-25] MEDS: INSULIN LISPRO 100 UNITS/ML VIAL SC SCH ×4 (07:42→22:09)
--- NOTE | 2016-11-25 07:43 | PN ---
Subjective - Date and Time Seen Date: 11/25/16 Time: 07:43 Subjective Narrative: She says she is feeling better. WBC up more this morning. Tmax 36.8. Objective - Review of Systems Generalized/Overall Review: Denies: Chills, Fever EENTM: Reports: No Symptoms Reported Respiratory: Reports: Cough, Shortness of Breath Cardiac: Reports: Edema. Denies: Chest Pain, Palpitations Abdominal: Denies: Nausea, Vomiting Genitourinary Symptoms: Denies: Urgency, Frequency - Vitals Vitals: Last Vital Signs Temp 36.4 C L 11/25/16 07:37 Pulse 85 11/25/16 07:37 Resp 20 11/25/16 07:37 BP 138/59 11/25/16 07:37 Pulse Ox 94 11/25/16 07:37 - Abnormal Lab Findings Abnormal Lab Findings: Abnormal Lab Results 11/25/16 11/25/16 Range/Units 05:56 05:56 WBC 18.3 H D (4.0-10.5) K/mm3 RBC 3.69 L (4.2-5.4) M/mm3 Hgb 11.2 L (12.5-16.0) gm/dL MCV 104.3 H (78-100) fl MCHC 29.1 L (32-36) g/dl RDW 14.2 H (11.5-14.0) % Neutrophils % (Manual) 90 H (42-75) % Lymphocytes % (Manual) 6 L (20-51) % Immature Granulocytes 3 H (0-1) Neutrophils # (Manual) 16.5 H (1.3-6.0) K/mm3 Lymphocytes # (Manual) 1.1 L (1.5-3.5) k/mm3 Nucleated RBCs 2.0 H (0-1) % Potassium 4.8 H (3.4-4.6) mmol/L Chloride 96 L (97-106) mmol/L Carbon Dioxide 41.1 H (24-32.6) mmol/L Anion Gap 6.7 L (6.8-13.8) mmol/L BUN 32 H (3-23) mg/dL Creatinine 1.67 H (0.4-1.4) mg/dL Est GFR (Non-Af Amer) 32 L (60-130) mL/min Random Glucose 231 H D (70-110) mg/dL - Exam Constitutional: Present: Alert, Oriented x3, Cooperative ENT Exam: Present: hearing grossly normal Neck: Present: supple Breasts: Present: Exam deferred Cardiovascular/Chest: Present: regular rate, rhythm, no JVD, no murmur Abdomen: Present: Normal bowel sounds, soft, nontender, nondistended Extremity: Present: lower extremity edema Cauti Physician Documentation - Urinary Catheter Management Urethral (Santiago) Date of Insertion: 11/24/16 Time of Insertion: 05:30 Date of Removal: 11/24/16 Time of Removal: 16:45 Assessment/Plan - Problems/Diagnosis (1) Acute respiratory distress Problem: Acute (2) COPD exacerbation Problem: Acute (3) Pneumonia Problem: Acute Qualifiers: Pneumonia type: due to unspecified organism Laterality: unspecified laterality Lung location: unspecified part of lung Qualified Code(s): J18.9 - Pneumonia, unspecified organism Narrative: will change cwefepime to IV meropenem. will get video swallow. 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 will change to IV meropenem.
[2016-11-25] MEDS: HYDROPHILIC OINTMENT 454 APPL JAR TP SCH ×2 (09:03→22:07)
[2016-11-25] MEDS: amLODIPine BESYLATE 5 MG TABLET PO SCH (09:04)
[2016-11-25] MEDS: LISINOPRIL 10 MG TABLET PO SCH (09:04)
[2016-11-25] MEDS: buPROPion HCL 100 MG TABLET PO SCH (09:04)
[2016-11-25] MEDS: LORATADINE 10 MG TABLET PO SCH (09:04)
[2016-11-25] MEDS: DOCUSATE SODIUM 100 MG CAPSULE PO SCH ×2 (09:04→22:08)
[2016-11-25] MEDS: glipiZIDE 5 MG TABLET PO SCH (09:04)
[2016-11-25] MEDS ORDERED: VANCOMYCIN HCL 1.25 GM in DEXTROSE 5 % IN WATER 250 ML IV SCH ×2 (10:00)
[2016-11-25] MEDS: MEROPENEM 500 MG in NORMAL SALINE 100 ML IV SCH ×2 (10:44→22:09)
[2016-11-25] MEDS: VANCOMYCIN HCL 1.25 GM in DEXTROSE 5 % IN WATER 250 ML IV SCH ×2 (12:25)
[2016-11-25] MEDS: ALBUTEROL SULFATE 2.5 MG/0.5 ML VIAL.NEB IH PRN (14:07)
[2016-11-25] MEDS: ENOXAPARIN SODIUM 30 MG/0.3 ML SYRG SC SCH (15:35)
[2016-11-26] MEDS: ALBUTEROL SULFATE/IPRATROPIUM 3 ML NEBU IH SCH ×4 (00:36→18:21)
[2016-11-26] MEDS: METHYLPREDNISOLONE SOD SUCC 60 MG in WATER FOR INJ.,BACTERIOSTATIC 0 ML IV SCH ×3 (01:40→12:49)
[2016-11-26] MEDS: INSULIN LISPRO 100 UNITS/ML VIAL SC SCH ×4 (06:51→21:14)
[2016-11-26 08:14] LABS: Hematocrit 39.6 % (37.0-47.0); Hemoglobin 11.5 gm/dL (12.5-16.0); Mean Cell Volume 104.8 fl (78-100); Mean Corpuscular Hemoglobin 30.4 pg (27-31); Mean Platelet Volume 9.2 fl (6.0-9.5); Platelet Count 373 K/mm3 (150-450); Red Blood Count 3.78 M/mm3 (4.2-5.4); White Blood Count 21.6 K/mm3 (4.0-10.5)
[2016-11-26 08:20] LABS: Total Cells Counted 100
[2016-11-26 08:30] LABS: BUN/Creatinine Ratio 25.2 (9.0-21.6); Calcium * 7.9 mg/dL (7.9-10.9); Carbon Dioxide 41.1 mmol/L (24-32.6); Estimated Creat Clear 24.8; Potassium 5.1 mmol/L (3.4-4.6)
[2016-11-26 09:02] LABS: Atypical (Reactive) Lymph 2 % (0-2); Band 1 % (0-2.0); Immature Granulocyte 4 (0-1); Lymphocyte 6 % (20-51); Monocyte 4 % (0-9); Neutrophil 83 % (42-75); Neutrophil # 17.9 K/mm3 (1.3-6.0); Platelet Estimate Normal (NORMAL)
[2016-11-26 09:03] LABS: Macrocytosis 2+
[2016-11-26 09:04] LABS: Dohle Bodies 1+
[2016-11-26] MEDS: HYDROPHILIC OINTMENT 454 APPL JAR TP SCH ×2 (09:15→21:23)
[2016-11-26] MEDS: LORATADINE 10 MG TABLET PO SCH (09:15)
[2016-11-26] MEDS: LISINOPRIL 10 MG TABLET PO SCH (09:16)
[2016-11-26] MEDS: glipiZIDE 5 MG TABLET PO SCH (09:16)
[2016-11-26] MEDS: buPROPion HCL 100 MG TABLET PO SCH (09:16)
[2016-11-26] MEDS: DOCUSATE SODIUM 100 MG CAPSULE PO SCH ×2 (09:16→21:15)
[2016-11-26] MEDS: amLODIPine BESYLATE 5 MG TABLET PO SCH (09:16)
[2016-11-26] MEDS: MEROPENEM 500 MG in NORMAL SALINE 100 ML IV SCH ×2 (12:05→21:16)
[2016-11-26] MEDS: VANCOMYCIN HCL 1.25 GM in DEXTROSE 5 % IN WATER 250 ML IV SCH ×2 (12:49)
--- NOTE | 2016-11-26 14:41 | PN ---
Subjective - Date and Time Seen Date: 11/26/16 Time: 06:00 Subjective Narrative: Feel much better. Less SOB. Less cough. Wants sausage on her diet. WBC count up, but on steroids. Objective - Review of Systems Generalized/Overall Review: Reports: Weakness EENTM: Reports: No Symptoms Reported Respiratory: Reports: Cough, Shortness of Breath Cardiac: Reports: No Symptoms Reported Abdominal: Reports: No Symptoms Reported Genitourinary Symptoms: Reports: No Symptoms Reported Musculoskeletal Complaints: Reports: No Symptoms Reported Neurological: Reports: No Symptoms Reported Skin: Reports: No Symptoms Reported Endocrine: Reports: No Symptoms Reported Misc: All systems neg except as marked - Vitals Vitals: Last Vital Signs Selected Entries 11/26/16 14:08 Temperature 37.1 C Temperature Temporal Artery Source Scan Pulse Rate 66 Respiratory 16 Rate Blood Pressure 115/67 O2 Sat by Pulse 95 Oximetry Oxygen Delivery Nasal Cannula Method Oxygen Flow 2 Rate - Abnormal Lab Findings Abnormal Lab Findings: Abnormal Lab Results 11/26/16 11/26/16 Range/Units 08:01 08:01 WBC 21.6 H (4.0-10.5) K/mm3 RBC 3.78 L (4.2-5.4) M/mm3 Hgb 11.5 L (12.5-16.0) gm/dL MCV 104.8 H (78-100) fl MCHC 29.0 L (32-36) g/dl Neutrophils % (Manual) 83 H (42-75) % Lymphocytes % (Manual) 6 L (20-51) % Immature Granulocytes 4 H (0-1) Neutrophils # (Manual) 17.9 H (1.3-6.0) K/mm3 Lymphocytes # (Manual) 1.3 L (1.5-3.5) k/mm3 Potassium 5.1 H (3.4-4.6) mmol/L Chloride 93 L (97-106) mmol/L Carbon Dioxide 41.1 H (24-32.6) mmol/L Anion Gap 5.0 L (6.8-13.8) mmol/L BUN 36 H (3-23) mg/dL Creatinine 1.43 H (0.4-1.4) mg/dL Est GFR (Non-Af Amer) 38 L (60-130) mL/min BUN/Creatinine Ratio 25.2 H (9.0-21.6) Random Glucose 218 H (70-110) mg/dL - Exam Constitutional: Present: Alert, Oriented x3, Cooperative, Well developed, No distress, Morbidly obese ENT Exam: Present: normal ENT inspection, hearing grossly normal Neck: Present: normal inspection Respiratory: Present: lungs clear, normal breath sounds Cardiovascular/Chest: Present: regular rate, rhythm, no murmur Abdomen: Present: Normal bowel sounds, soft, nontender, nondistended, no rebound tenderness, no hepatospenomegaly, no masses, obese Extremity: Present: lower extremity edema Skin Exam: Present: normal color, warm/dry, no cyanosis Neurologic: Present: alert, oriented x 3 Appearance: Present: appropriate appearance, appropriate insight, neat, no memory impairment Eye contact: Present: cooperative, good eye contact, normal speech Thoughts: Present: normal thought pattern Cauti Physician Documentation - Urinary Catheter Management Urethral (Santiago) Date of Insertion: 11/24/16 Time of Insertion: 05:30 Date of Removal: 11/24/16 Time of Removal: 16:45 Assessment/Plan Plan Narrative: Antibiotics. Decrease steroids. Follow labs. - Problems/Diagnosis (1) CHF exacerbation Problem: Acute (2) Hypercapnia Problem: Acute (3) Leukocytosis Problem: Acute (4) Pneumonia Problem: Acute Qualifiers: Pneumonia type: due to unspecified organism Laterality: unspecified laterality Lung location: unspecified part of lung Qualified Code(s): J18.9 - Pneumonia, unspecified organism (5) COPD exacerbation Problem: Acute (6) Respiratory failure Problem: Acute Qualifiers: Chronicity: acute on chronic Respiratory failure complication: hypoxia and hypercapnia Qualified Code(s): J96.21 - Acute and chronic respiratory failure with hypoxia; J96.22 - Acute and chronic respiratory failure with hypercapnia (7) Diabetes Problem: Chronic Qualifiers: Diabetes mellitus type: type 2 Diabetes mellitus complication status: with hyperglycemia Diabetes mellitus senior living insulin use: without termite treater use Qualified Code(s): E11.65 - Type 2 diabetes mellitus with hyperglycemia (8) Morbid (severe) obesity with alveolar hypoventilation Problem: Chronic (9) Pulmonary hypertension Problem: Chronic
[2016-11-26] MEDS: ENOXAPARIN SODIUM 30 MG/0.3 ML SYRG SC SCH (15:38)
[2016-11-27] MEDS: ALBUTEROL SULFATE/IPRATROPIUM 3 ML NEBU IH SCH ×4 (00:41→19:33)
[2016-11-27] MEDS ORDERED: METHYLPREDNISOLONE SOD SUCC 60 MG in WATER FOR INJ.,BACTERIOSTATIC 0 ML IV SCH ×4 (01:00)
[2016-11-27 05:44] LABS: Hematocrit 40.1 % (37.0-47.0); Hemoglobin 11.9 gm/dL (12.5-16.0); Mean Cell Volume 103.9 fl (78-100); Mean Corpuscular Hemoglobin 30.8 pg (27-31); Mean Corpuscular Hgb Conc 29.7 g/dl (32-36); Mean Platelet Volume 9.2 fl (6.0-9.5); Platelet Count 370 K/mm3 (150-450); Red Blood Count 3.86 M/mm3 (4.2-5.4); Red Cell Distribution Width 14.1 % (11.5-14.0)
[2016-11-27 05:51] LABS: Total Cells Counted 100
[2016-11-27 06:01] LABS: Anion Gap 6.1 mmol/L (6.8-13.8); BUN/Creatinine Ratio 28.3 (9.0-21.6); Calcium * 8.1 mg/dL (7.9-10.9); Carbon Dioxide 40.4 mmol/L (24-32.6); Estimated Creat Clear 27.9; Potassium 5.5 mmol/L (3.4-4.6)
[2016-11-27 06:26] LABS: Atypical (Reactive) Lymph 1 % (0-2); Immature Granulocyte 1 (0-1); Lymphocyte 7 % (20-51); Monocyte 9 % (0-9); Neutrophil 82 % (42-75); Neutrophil # 15.6 K/mm3 (1.3-6.0); Platelet Estimate Normal (NORMAL)
[2016-11-27 06:27] LABS: Macrocytosis 1+
[2016-11-27 06:29] LABS: Dohle Bodies Trace
[2016-11-27] MEDS: INSULIN LISPRO 100 UNITS/ML VIAL SC SCH ×4 (06:41→20:36)
[2016-11-27] MEDS: HYDROPHILIC OINTMENT 454 APPL JAR TP SCH ×2 (09:17→20:40)
[2016-11-27] MEDS: MEROPENEM 500 MG in NORMAL SALINE 100 ML IV SCH ×2 (09:18→20:40)
[2016-11-27] MEDS: DOCUSATE SODIUM 100 MG CAPSULE PO SCH ×2 (09:18→20:40)
[2016-11-27] MEDS: glipiZIDE 5 MG TABLET PO SCH (09:18)
[2016-11-27] MEDS: LORATADINE 10 MG TABLET PO SCH (09:18)
[2016-11-27] MEDS: LISINOPRIL 10 MG TABLET PO SCH (09:19)
[2016-11-27] MEDS: amLODIPine BESYLATE 5 MG TABLET PO SCH (09:19)
[2016-11-27] MEDS: buPROPion HCL 100 MG TABLET PO SCH (09:19)
[2016-11-27] MEDS ORDERED: HYDROCHLOROTHIAZIDE 25 MG TABLET PO SCH (10:30)
[2016-11-27] MEDS: HYDROCHLOROTHIAZIDE 25 MG TABLET PO SCH (11:30)
[2016-11-27] MEDS: METHYLPREDNISOLONE SOD SUCC IV SCH ×2 (11:31→22:40)
[2016-11-27] MEDS: WATER FOR INJ BACTERIOSTATIC IV SCH ×2 (11:31→22:40)
[2016-11-27] MEDS: VANCOMYCIN HCL 1.25 GM in DEXTROSE 5 % IN WATER 250 ML IV SCH ×2 (12:10)
--- NOTE | 2016-11-27 12:26 | PN ---
Subjective - Date and Time Seen Date: 11/27/16 Time: 12:16 Subjective Narrative: Feel much better. Less SOB. Less cough. Would like someone to come in every morning at 5 to check if her bedding is dry. WBC cell count is down with the decrease in steroid dose. Potassium is a little high, so we will switch her lisinopril to hydrochlorothiazide. Objective - Review of Systems Generalized/Overall Review: Reports: Weakness EENTM: Reports: No Symptoms Reported Respiratory: Reports: Cough Cardiac: Reports: No Symptoms Reported Abdominal: Reports: No Symptoms Reported Genitourinary Symptoms: Reports: No Symptoms Reported Musculoskeletal Complaints: Reports: No Symptoms Reported Neurological: Reports: No Symptoms Reported Skin: Reports: No Symptoms Reported Endocrine: Reports: No Symptoms Reported Misc: All systems neg except as marked - Vitals Vitals: Last Vital Signs Selected Entries 11/27/16 09:54 Temperature 36.5 C Temperature Oral Source Pulse Rate 95 Respiratory 20 Rate Blood Pressure 127/62 Blood Pressure Sitting Position O2 Sat by Pulse 96 Oximetry Oxygen Delivery Nasal Cannula Method Oxygen Flow 2 Rate - Abnormal Lab Findings Abnormal Lab Findings: Abnormal Lab Results 11/27/16 11/27/16 Range/Units 05:20 05:20 WBC 19.0 H (4.0-10.5) K/mm3 RBC 3.86 L (4.2-5.4) M/mm3 Hgb 11.9 L (12.5-16.0) gm/dL MCV 103.9 H (78-100) fl MCHC 29.7 L (32-36) g/dl RDW 14.1 H (11.5-14.0) % Neutrophils % (Manual) 82 H (42-75) % Lymphocytes % (Manual) 7 L (20-51) % Neutrophils # (Manual) 15.6 H (1.3-6.0) K/mm3 Lymphocytes # (Manual) 1.3 L (1.5-3.5) k/mm3 Monocytes # (Manual) 1.7 H (0.0-1.0) k/mm3 Potassium 5.5 H (3.4-4.6) mmol/L Chloride 96 L (97-106) mmol/L Carbon Dioxide 40.4 H (24-32.6) mmol/L Anion Gap 6.1 L (6.8-13.8) mmol/L BUN 36 H (3-23) mg/dL Est GFR (Non-Af Amer) 44 L (60-130) mL/min BUN/Creatinine Ratio 28.3 H (9.0-21.6) Random Glucose 212 H (70-110) mg/dL - Exam Constitutional: Present: Alert, Oriented x3, Cooperative, Well developed, No distress, Morbidly obese ENT Exam: Present: normal ENT inspection Neck: Present: normal inspection Respiratory: Present: no respiratory distress, other - congested cough Cardiovascular/Chest: Present: regular rate, rhythm, no murmur Abdomen: Present: Normal bowel sounds, soft, nontender, nondistended, no rebound tenderness, no hepatospenomegaly, no masses, obese Extremity: Present: normal inspection, lower extremity edema Skin Exam: Present: normal color, warm/dry, no cyanosis Neurologic: Present: alert, oriented x 3 Appearance: Present: appropriate appearance, appropriate insight, neat Eye contact: Present: cooperative, good eye contact, normal speech Thoughts: Present: normal thought pattern Cauti Physician Documentation - Urinary Catheter Management Urethral (Santiago) Date of Insertion: 11/24/16 Time of Insertion: 05:30 Date of Removal: 11/24/16 Time of Removal: 16:45 Assessment/Plan Plan Narrative: Decrease steroids. Switch lisinopril to hydrochlorothiazide. Labs in am. - Problems/Diagnosis (1) CHF exacerbation Problem: Acute (2) Hypercapnia Problem: Acute (3) Leukocytosis Problem: Acute (4) Pneumonia Problem: Acute Qualifiers: Pneumonia type: due to unspecified organism Laterality: unspecified laterality Lung location: unspecified part of lung Qualified Code(s): J18.9 - Pneumonia, unspecified organism (5) COPD exacerbation Problem: Acute (6) Respiratory failure Problem: Acute Qualifiers: Chronicity: acute on chronic Respiratory failure complication: hypoxia and hypercapnia Qualified Code(s): J96.21 - Acute and chronic respiratory failure with hypoxia; J96.22 - Acute and chronic respiratory failure with hypercapnia (7) Diabetes Problem: Chronic Qualifiers: Diabetes mellitus type: type 2 Diabetes mellitus complication status: with hyperglycemia Diabetes mellitus manager intermediate insulin use: without halfway use Qualified Code(s): E11.65 - Type 2 diabetes mellitus with hyperglycemia (8) Morbid (severe) obesity with alveolar hypoventilation Problem: Chronic (9) Pulmonary hypertension Problem: Chronic
[2016-11-27] MEDS: ENOXAPARIN SODIUM 30 MG/0.3 ML SYRG SC SCH (15:13)
[2016-11-28] MEDS: ALBUTEROL SULFATE/IPRATROPIUM 3 ML NEBU IH SCH ×4 (00:44→19:45)
[2016-11-28 06:15] LABS: Anion Gap 3.2 mmol/L (6.8-13.8); Carbon Dioxide 42.9 mmol/L (24-32.6); Potassium 5.1 mmol/L (3.4-4.6)
[2016-11-28] MEDS: INSULIN LISPRO 100 UNITS/ML VIAL SC SCH ×4 (06:45→21:25)
[2016-11-28 08:03] LABS: Hematocrit 40.4 % (37.0-47.0); Hemoglobin 12.2 gm/dL (12.5-16.0); Mean Cell Volume 103.1 fl (78-100); Mean Corpuscular Hemoglobin 31.1 pg (27-31); Mean Corpuscular Hgb Conc 30.2 g/dl (32-36); Mean Platelet Volume 9.6 fl (6.0-9.5); Platelet Count 363 K/mm3 (150-450); Red Blood Count 3.92 M/mm3 (4.2-5.4); Red Cell Distribution Width 14.3 % (11.5-14.0); White Blood Count 15.4 K/mm3 (4.0-10.5)
[2016-11-28 08:08] LABS: Total Cells Counted 100
[2016-11-28 08:12] LABS: Albumin * 2.5 gm/dl (3.4-5.0); BUN/Creatinine Ratio 30.9 (9.0-21.6); Bilirubin, Total 0.2 mg/dL (0.0-1.1); Ca. Corrected For Albumin 8.9 mg/dL (8.4-10.2)
[2016-11-28 08:19] LABS: Eosinophil 1 % (0-3); Immature Granulocyte 6 (0-1); Lymphocyte 3 % (20-51); Monocyte 4 % (0-9); Neutrophil 86 % (42-75); Neutrophil # 13.2 K/mm3 (1.3-6.0)
[2016-11-28 08:20] LABS: Macrocytosis 2+; Polychromasia Trace
[2016-11-28 08:21] LABS: Platelet Estimate Normal (NORMAL)
[2016-11-28] MEDS: HYDROPHILIC OINTMENT 454 APPL JAR TP SCH ×2 (09:25→21:27)
[2016-11-28] MEDS: LORATADINE 10 MG TABLET PO SCH (09:25)
[2016-11-28] MEDS: DOCUSATE SODIUM 100 MG CAPSULE PO SCH ×2 (09:25→21:22)
[2016-11-28] MEDS: glipiZIDE 5 MG TABLET PO SCH (09:25)
[2016-11-28] MEDS: MEROPENEM 500 MG in NORMAL SALINE 100 ML IV SCH ×2 (09:25→21:22)
[2016-11-28] MEDS: amLODIPine BESYLATE 5 MG TABLET PO SCH (09:26)
[2016-11-28] MEDS: buPROPion HCL 100 MG TABLET PO SCH (09:26)
--- NOTE | 2016-11-28 10:03 | PN ---
Subjective - Date and Time Seen Date: 11/28/16 Time: 10:03 Subjective Narrative: short of breath. attemped to wean to room air and dropped to 80%. weight still up 3 Kg. legs swollen. Objective - Review of Systems Generalized/Overall Review: Reports: Malaise, Fatigue. Denies: Fever EENTM: Reports: No Symptoms Reported Respiratory: Reports: Shortness of Breath Cardiac: Reports: Edema. Denies: Chest Pain, Syncope Abdominal: Reports: No Symptoms Reported Genitourinary Symptoms: Reports: No Symptoms Reported Musculoskeletal Complaints: Reports: No Symptoms Reported Neurological: Reports: No Symptoms Reported Skin: Reports: No Symptoms Reported Endocrine: Reports: No Symptoms Reported Misc: All systems neg except as marked - Vitals Vitals: Last Vital Signs Temp 36.3 C L 11/28/16 06:00 Pulse 78 11/28/16 09:26 Resp 20 11/28/16 07:22 BP 142/55 11/28/16 09:26 Pulse Ox 92 11/28/16 07:22 - Abnormal Lab Findings Abnormal Lab Findings: Abnormal Lab Results 11/28/16 11/28/16 Range/Units 05:55 05:55 WBC 15.4 H (4.0-10.5) K/mm3 RBC 3.92 L (4.2-5.4) M/mm3 Hgb 12.2 L (12.5-16.0) gm/dL MCV 103.1 H (78-100) fl MCH 31.1 H (27-31) pg MCHC 30.2 L (32-36) g/dl RDW 14.3 H (11.5-14.0) % MPV 9.6 H (6.0-9.5) fl Neutrophils % (Manual) 86 H (42-75) % Lymphocytes % (Manual) 3 L (20-51) % Immature Granulocytes 6 H (0-1) Neutrophils # (Manual) 13.2 H (1.3-6.0) K/mm3 Lymphocytes # (Manual) 0.5 L (1.5-3.5) k/mm3 Potassium 5.1 H (3.4-4.6) mmol/L Carbon Dioxide 42.9 H (24-32.6) mmol/L Anion Gap 3.2 L (6.8-13.8) mmol/L BUN 34 H (3-23) mg/dL Est GFR (Non-Af Amer) 52 L (60-130) mL/min BUN/Creatinine Ratio 30.9 H (9.0-21.6) Random Glucose 174 H (70-110) mg/dL ALT 79 H (19-67) U/L Albumin 2.5 L (3.4-5.0) gm/dl - Exam Constitutional: Present: Alert, Cooperative, No distress, Morbidly obese ENT Exam: Present: hard of hearing Breasts: Present: Exam deferred Respiratory: Present: decreased breath sounds, rhonchi Cardiovascular/Chest: Present: normal peripheral pulses, regular rate, rhythm Abdomen: Present: soft, nontender, obese /Rectal: Present: Exam deferred Extremity: Present: no calf tenderness, lower extremity edema - 2-3+ pitting edema bilat Skin Exam: Present: warm/dry, no cyanosis, pallor Cauti Physician Documentation - Urinary Catheter Management Urethral (Santiago) Urethral Indwelling: No Date of Insertion: 11/24/16 Time of Insertion: 05:30 Date of Removal: 11/24/16 Time of Removal: 16:45 Assessment/Plan Plan Narrative: 76 year old female admitted with chf exac, pneumonia, copd exac. still requiring oxygen supplementation. weight balance positive overall. significant lower extremity edema. will order IV lasix today. recheck labs in am. continue iv meropenum and iv vancomycin. wbc decreasing 19.0 --> 15.4 with 86 neutrophils. creatinine improved at 1.10. no fever. encourage T/C/D. encourage IS / cornet. encourage ambulation. monitor closely. - Problems/Diagnosis (1) CHF exacerbation Problem: Acute (2) Hypercapnia Problem: Acute (3) Leukocytosis Problem: Acute (4) Pneumonia Problem: Acute Qualifiers: Pneumonia type: due to unspecified organism Laterality: unspecified laterality Lung location: unspecified part of lung Qualified Code(s): J18.9 - Pneumonia, unspecified organism (5) COPD exacerbation Problem: Acute (6) Respiratory failure Problem: Acute Qualifiers: Chronicity: acute on chronic Respiratory failure complication: hypoxia and hypercapnia Qualified Code(s): J96.21 - Acute and chronic respiratory failure with hypoxia; J96.22 - Acute and chronic respiratory failure with hypercapnia (7) Diabetes Problem: Chronic Qualifiers: Diabetes mellitus type: type 2 Diabetes mellitus complication status: with hyperglycemia Diabetes mellitus half-way insulin use: without half-way use Qualified Code(s): E11.65 - Type 2 diabetes mellitus with hyperglycemia (8) Morbid (severe) obesity with alveolar hypoventilation Problem: Chronic (9) Pulmonary hypertension Problem: Chronic
[2016-11-28] MEDS ORDERED: FUROSEMIDE 10 MG/ML VIAL IV ONE (10:17)
[2016-11-28] MEDS: WATER FOR INJ BACTERIOSTATIC IV SCH ×2 (10:42→22:56)
[2016-11-28] MEDS: HYDROCHLOROTHIAZIDE 25 MG TABLET PO SCH (10:42)
[2016-11-28] MEDS: METHYLPREDNISOLONE SOD SUCC IV SCH ×2 (10:42→22:56)
[2016-11-28] MEDS ORDERED: FLU VACC QS2017-18(6MOS UP)/PF 60 MCG/0.5 ML SYRINGE IM ONE (11:52)
[2016-11-28] MEDS ORDERED: VANCOMYCIN HCL LEVEL XX ONE (12:00)
[2016-11-28] MEDS: ENOXAPARIN SODIUM 30 MG/0.3 ML SYRG SC SCH (15:00)
[2016-11-28] MEDS: VANCOMYCIN HCL 1.25 GM in DEXTROSE 5 % IN WATER 250 ML IV SCH ×2 (15:00)
[2016-11-29] MEDS: ALBUTEROL SULFATE/IPRATROPIUM 3 ML NEBU IH SCH ×4 (01:13→18:09)
[2016-11-29 05:56] LABS: Hemoglobin 12.5 gm/dL (12.5-16.0); Mean Cell Volume 102.5 fl (78-100); Mean Corpuscular Hemoglobin 31.3 pg (27-31); Mean Corpuscular Hgb Conc 30.5 g/dl (32-36); Mean Platelet Volume 9.4 fl (6.0-9.5); Platelet Count 354 K/mm3 (150-450); Red Cell Distribution Width 14.3 % (11.5-14.0); White Blood Count 16.5 K/mm3 (4.0-10.5)
[2016-11-29 06:04] LABS: Total Cells Counted 100
[2016-11-29 06:11] LABS: Calcium * 8.2 mg/dL (7.9-10.9); Chloride 97 mmol/L (97-106); Estimated Creat Clear 31.4; Glucose * 140 mg/dL (70-110); Potassium 4.3 mmol/L (3.4-4.6); Sodium 140 mmol/L (132-142)
[2016-11-29 06:24] LABS: Band 2 % (0-2.0); Immature Granulocyte 3 (0-1); Lymphocyte 7 % (20-51); Macrocytosis 3+; Monocyte 6 % (0-9); Neutrophil 82 % (42-75); Neutrophil # 13.5 K/mm3 (1.3-6.0)
[2016-11-29 06:25] LABS: Platelet Estimate Normal (NORMAL); Polychromasia 1+
[2016-11-29 06:27] LABS: BUN/Creatinine Ratio 31.9 (9.0-21.6); Blood Urea Nitrogen 36 mg/dL (3-23)
[2016-11-29 06:40] LABS: Carbon Dioxide 47.3 mmol/L (24-32.6)
[2016-11-29] MEDS: INSULIN LISPRO 100 UNITS/ML VIAL SC SCH ×4 (07:14→22:38)
[2016-11-29] MEDS: DOCUSATE SODIUM 100 MG CAPSULE PO SCH ×2 (09:26→22:30)
[2016-11-29] MEDS: LORATADINE 10 MG TABLET PO SCH (09:26)
[2016-11-29] MEDS: HYDROPHILIC OINTMENT 454 APPL JAR TP SCH ×2 (09:26→22:29)
[2016-11-29] MEDS: buPROPion HCL 100 MG TABLET PO SCH (09:27)
[2016-11-29] MEDS: glipiZIDE 5 MG TABLET PO SCH (09:27)
[2016-11-29] MEDS: amLODIPine BESYLATE 5 MG TABLET PO SCH (09:27)
[2016-11-29] MEDS: MEROPENEM 500 MG in NORMAL SALINE 100 ML IV SCH ×2 (09:27→22:30)
[2016-11-29] MEDS: HYDROCHLOROTHIAZIDE 25 MG TABLET PO SCH (10:39)
--- NOTE | 2016-11-29 12:47 | PN ---
Subjective - Date and Time Seen Date: 11/29/16 Time: 12:44 Subjective Narrative: Patient says she is feeling stronger and better. Her WBC is slight up again. Objective - Review of Systems Generalized/Overall Review: Denies: Chills, Fever EENTM: Reports: No Symptoms Reported Respiratory: Reports: Shortness of Breath. Denies: Cough Cardiac: Reports: Edema. Denies: Chest Pain, Palpitations Abdominal: Denies: Nausea, Vomiting Genitourinary Symptoms: Denies: Urgency, Frequency - Vitals Vitals: Last Vital Signs Temp 36.7 C 11/29/16 11:38 Pulse 88 11/29/16 11:38 Resp 20 11/29/16 11:38 BP 152/76 11/29/16 11:38 Pulse Ox 93 11/29/16 11:38 - Abnormal Lab Findings Abnormal Lab Findings: Abnormal Lab Results 11/29/16 11/29/16 Range/Units 05:00 05:00 WBC 16.5 H (4.0-10.5) K/mm3 RBC 4.00 L (4.2-5.4) M/mm3 MCV 102.5 H (78-100) fl MCH 31.3 H (27-31) pg MCHC 30.5 L (32-36) g/dl RDW 14.3 H (11.5-14.0) % Neutrophils % (Manual) 82 H (42-75) % Lymphocytes % (Manual) 7 L (20-51) % Immature Granulocytes 3 H (0-1) Neutrophils # (Manual) 13.5 H (1.3-6.0) K/mm3 Lymphocytes # (Manual) 1.2 L (1.5-3.5) k/mm3 Carbon Dioxide 47.3 H (24-32.6) mmol/L Anion Gap Less than 1.0 L (6.8-13.8) mmol/L BUN 36 H (3-23) mg/dL Est GFR (Non-Af Amer) 50 L (60-130) mL/min BUN/Creatinine Ratio 31.9 H (9.0-21.6) Random Glucose 140 H (70-110) mg/dL - Exam Constitutional: Present: Alert, Oriented x3, Cooperative ENT Exam: Present: hearing grossly normal Neck: Present: supple Breasts: Present: Exam deferred Respiratory: Present: decreased breath sounds, No rales, No wheezing Cardiovascular/Chest: Present: regular rate, rhythm, no JVD, no murmur Abdomen: Present: Normal bowel sounds, soft, nontender, nondistended Extremity: Present: no calf tenderness, lower extremity edema Cauti Physician Documentation - Urinary Catheter Management Urethral (Santiago) Urethral Indwelling: No Date of Insertion: 11/24/16 Time of Insertion: 05:30 Date of Removal: 11/24/16 Time of Removal: 16:45 Assessment/Plan - Problems/Diagnosis (1) Acute respiratory distress Problem: Acute (2) COPD exacerbation Problem: Acute (3) Pneumonia Problem: Acute Qualifiers: Pneumonia type: due to unspecified organism Laterality: unspecified laterality Lung location: unspecified part of lung Qualified Code(s): J18.9 - Pneumonia, unspecified organism Narrative: day # 5 of IV Merrem/Vanco. (4) Pleural effusion Problem: Acute (5) CHF (congestive heart failure) Problem: Chronic Qualifiers: Congestive heart failure type: combined Congestive heart failure chronicity : acute on chronic Qualified Code(s): I50.43 - Acute on chronic combined systolic (congestive) and diastolic (congestive) heart failure (6) Diabetes Problem: Chronic Qualifiers: Diabetes mellitus type: type 2 Diabetes mellitus complication status: with hyperglycemia Diabetes mellitus rodent exterminator insulin use: without rodent exterminator use Qualified Code(s): E11.65 - Type 2 diabetes mellitus with hyperglycemia (7) Morbid (severe) obesity with alveolar hypoventilation Problem: Chronic (8) Pulmonary hypertension Problem: Chronic (9) Leukocytosis Problem: Acute Narrative: infection/steroids. will d/c IV soulmedrol.
[2016-11-29] MEDS: VANCOMYCIN HCL 1.25 GM in DEXTROSE 5 % IN WATER 250 ML IV SCH ×2 (13:42)
[2016-11-29] MEDS: ENOXAPARIN SODIUM 30 MG/0.3 ML SYRG SC SCH (17:10)
[2016-11-30] MEDS: ALBUTEROL SULFATE/IPRATROPIUM 3 ML NEBU IH SCH ×4 (00:31→18:21)
[2016-11-30 06:06] LABS: Hematocrit 42.4 % (37.0-47.0); Hemoglobin 12.6 gm/dL (12.5-16.0); Mean Cell Volume 102.4 fl (78-100); Mean Corpuscular Hemoglobin 30.4 pg (27-31); Mean Corpuscular Hgb Conc 29.7 g/dl (32-36); Mean Platelet Volume 9.6 fl (6.0-9.5); Platelet Count 316 K/mm3 (150-450); Red Blood Count 4.14 M/mm3 (4.2-5.4); Red Cell Distribution Width 14.4 % (11.5-14.0); White Blood Count 17.1 K/mm3 (4.0-10.5)
[2016-11-30 06:07] LABS: Total Cells Counted 100
[2016-11-30 06:35] LABS: Eosinophil 1 % (0-3); Lymphocyte 10 % (20-51); Macrocytosis 2+; Monocyte 2 % (0-9); Neutrophil 87 % (42-75); Neutrophil # 14.9 K/mm3 (1.3-6.0); Platelet Estimate Normal (NORMAL); Polychromasia Trace
[2016-11-30] MEDS: INSULIN LISPRO 100 UNITS/ML VIAL SC SCH ×4 (06:36→21:05)
--- NOTE | 2016-11-30 08:40 | PN ---
Subjective - Date and Time Seen Date: 11/30/16 Time: 08:35 Subjective Narrative: Patient's WBC is creeping up again despite stoppage of steroids. patient coughing with liquid intake. Objective - Review of Systems Generalized/Overall Review: Denies: Chills, Fever EENTM: Reports: No Symptoms Reported Respiratory: Reports: Cough, Shortness of Breath. Denies: Orthopnea Cardiac: Reports: Edema. Denies: Chest Pain, Palpitations Abdominal: Denies: Nausea, Vomiting Genitourinary Symptoms: Denies: Urgency, Frequency Musculoskeletal Complaints: Denies: Joint Pain - Vitals Vitals: Last Vital Signs Temp 36.4 C L 11/30/16 07:54 Pulse 103 H 11/30/16 07:54 Resp 22 H 11/30/16 07:54 BP 128/66 11/30/16 07:54 Pulse Ox 100 11/30/16 07:58 - Abnormal Lab Findings Abnormal Lab Findings: Abnormal Lab Results 11/30/16 Range/Units 05:11 WBC 17.1 H (4.0-10.5) K/mm3 RBC 4.14 L (4.2-5.4) M/mm3 MCV 102.4 H (78-100) fl MCHC 29.7 L (32-36) g/dl RDW 14.4 H (11.5-14.0) % MPV 9.6 H (6.0-9.5) fl Neutrophils % (Manual) 87 H (42-75) % Lymphocytes % (Manual) 10 L (20-51) % Neutrophils # (Manual) 14.9 H (1.3-6.0) K/mm3 - Exam Constitutional: Present: Alert, Oriented x3, Cooperative, Morbidly obese ENT Exam: Present: hearing grossly normal Neck: Present: supple Breasts: Present: Exam deferred Respiratory: Present: decreased breath sounds, No rales, No wheezing Cardiovascular/Chest: Present: regular rate, rhythm, no JVD, no murmur Abdomen: Present: Normal bowel sounds, soft, nontender, nondistended Extremity: Present: no calf tenderness, lower extremity edema Cauti Physician Documentation - Urinary Catheter Management Urethral (Santiago) Urethral Indwelling: No Date of Insertion: 11/24/16 Time of Insertion: 05:30 Date of Removal: 11/24/16 Time of Removal: 16:45 Assessment/Plan - Problems/Diagnosis (1) Acute respiratory distress Problem: Resolved (2) COPD exacerbation Problem: Acute (3) Pneumonia Problem: Acute Qualifiers: Pneumonia type: due to unspecified organism Laterality: unspecified laterality Lung location: unspecified part of lung Qualified Code(s): J18.9 - Pneumonia, unspecified organism Narrative: likely aspiration. discussed with ST. will try nectar thickened fluid as we could have missed silent aspiration on video swallow. continue IV antibiorics for at least total of 7 days. (4) Pleural effusion Problem: Acute (5) CHF (congestive heart failure) Problem: Chronic Qualifiers: Congestive heart failure type: combined Congestive heart failure chronicity : acute on chronic Qualified Code(s): I50.43 - Acute on chronic combined systolic (congestive) and diastolic (congestive) heart failure (6) Diabetes Problem: Chronic Qualifiers: Diabetes mellitus type: type 2 Diabetes mellitus complication status: with hyperglycemia Diabetes mellitus care home insulin use: without care home use Qualified Code(s): E11.65 - Type 2 diabetes mellitus with hyperglycemia (7) Morbid (severe) obesity with alveolar hypoventilation Problem: Chronic (8) Pulmonary hypertension Problem: Chronic (9) Leukocytosis Problem: Acute Narrative: continues to go up despite stopping steroids. no diarrhea.
[2016-11-30] MEDS: HYDROPHILIC OINTMENT 454 APPL JAR TP SCH ×2 (08:42→21:02)
[2016-11-30] MEDS: glipiZIDE 5 MG TABLET PO SCH (08:42)
[2016-11-30] MEDS: LORATADINE 10 MG TABLET PO SCH (08:42)
[2016-11-30] MEDS: DOCUSATE SODIUM 100 MG CAPSULE PO SCH ×2 (08:42→21:03)
[2016-11-30] MEDS: amLODIPine BESYLATE 5 MG TABLET PO SCH (08:43)
[2016-11-30] MEDS: buPROPion HCL 100 MG TABLET PO SCH (08:43)
[2016-11-30] MEDS: MEROPENEM 500 MG in NORMAL SALINE 100 ML IV SCH ×2 (08:46→21:03)
[2016-11-30 10:14] LABS: Urine Bilirubin Negative (NEGATIVE); Urine Blood 250 /ul (NEGATIVE); Urine Ketone Negative (NEGATIVE); Urine Nitrite Negative (NEGATIVE); Urine Protein Negative (NEGATIVE); Urine Specific Gravity 1.015 SP.GR. (1.005-1.010); Urine Urobilinogen Normal (NORMAL)
[2016-11-30 10:21] LABS: Urine Appearance Slightly Cloudy; Urine Bacteria 2+; Urine Color Yellow; Urine Other Crystal Moderate - 2+ /hpf; Urine Renal Epithelial Cell Few - 1+ /hpf
[2016-11-30] MEDS: HYDROCHLOROTHIAZIDE 25 MG TABLET PO SCH (11:27)
[2016-11-30] MEDS: VANCOMYCIN HCL 1.25 GM in DEXTROSE 5 % IN WATER 250 ML IV SCH ×2 (11:35)
[2016-11-30] MEDS: ALBUTEROL SULFATE 2.5 MG/0.5 ML VIAL.NEB IH PRN (13:03)
[2016-11-30] MEDS: ENOXAPARIN SODIUM 30 MG/0.3 ML SYRG SC SCH (15:43)
[2016-12-01] MEDS: ALBUTEROL SULFATE/IPRATROPIUM 3 ML NEBU IH SCH ×4 (00:05→18:25)
[2016-12-01] MEDS: INSULIN LISPRO 100 UNITS/ML VIAL SC SCH ×4 (07:14→20:25)
--- NOTE | 2016-12-01 08:49 | PN ---
Subjective - Date and Time Seen Date: 12/01/16 Time: 08:46 Subjective Narrative: She feels good today. She says she still has occasional cough. Objective - Review of Systems Generalized/Overall Review: Denies: Chills, Fever EENTM: Reports: No Symptoms Reported Respiratory: Reports: Cough, Shortness of Breath Cardiac: Reports: Edema. Denies: Chest Pain, Palpitations Abdominal: Denies: Nausea Genitourinary Symptoms: Denies: Urgency, Frequency - Vitals Vitals: Last Vital Signs Temp 36.7 C 12/01/16 06:52 Pulse 88 12/01/16 06:52 Resp 20 12/01/16 06:52 BP 116/55 12/01/16 06:52 Pulse Ox 98 12/01/16 06:52 - Abnormal Lab Findings Abnormal Lab Findings: Abnormal Lab Results 11/30/16 Range/Units 10:07 Urine Blood 250 H (NEGATIVE) /ul Ur Leukocyte Esterase 75 H (NEGATIVE) /ul Urine RBC 10-25 H (0-5) /hpf Urine WBC 5-10 H (0-5) /hpf Ur Renal Epithelial Cell Few - 1+ H (NONE) /hpf Other Crystals Moderate - 2+ H (NONE) /hpf Urine Bacteria 2+ H (NONE) - Exam Constitutional: Present: Alert, Oriented x3, Cooperative, Morbidly obese ENT Exam: Present: hearing grossly normal Neck: Present: supple Breasts: Present: Exam deferred Respiratory: Present: decreased breath sounds, wheezing - ocassional, No rales Abdomen: Present: Normal bowel sounds, soft, nontender, obese Extremity: Present: no calf tenderness, lower extremity edema Cauti Physician Documentation - Urinary Catheter Management Urethral (Santiago) Urethral Indwelling: No Date of Insertion: 11/24/16 Time of Insertion: 05:30 Date of Removal: 11/24/16 Time of Removal: 16:45 Assessment/Plan - Problems/Diagnosis (1) Acute respiratory distress Problem: Resolved (2) COPD exacerbation Problem: Resolved (3) Pneumonia Problem: Acute Qualifiers: Pneumonia type: due to unspecified organism Laterality: unspecified laterality Lung location: unspecified part of lung Qualified Code(s): J18.9 - Pneumonia, unspecified organism Narrative: day # & of IV antibiotics. await CBC results. (4) Pleural effusion Problem: Acute (5) CHF (congestive heart failure) Problem: Chronic Qualifiers: Congestive heart failure type: combined Congestive heart failure chronicity : acute on chronic Qualified Code(s): I50.43 - Acute on chronic combined systolic (congestive) and diastolic (congestive) heart failure (6) Diabetes Problem: Chronic Qualifiers: Diabetes mellitus type: type 2 Diabetes mellitus complication status: with hyperglycemia Diabetes mellitus long distance operator insulin use: without long distance operator use Qualified Code(s): E11.65 - Type 2 diabetes mellitus with hyperglycemia (7) Morbid (severe) obesity with alveolar hypoventilation Problem: Chronic (8) Pulmonary hypertension Problem: Chronic (9) Leukocytosis Problem: Acute Narrative: await CBC results.
[2016-12-01] MEDS: DOCUSATE SODIUM 100 MG CAPSULE PO SCH ×2 (10:02→20:20)
[2016-12-01] MEDS: LORATADINE 10 MG TABLET PO SCH (10:03)
[2016-12-01] MEDS: glipiZIDE 5 MG TABLET PO SCH (10:03)
[2016-12-01] MEDS: amLODIPine BESYLATE 5 MG TABLET PO SCH (10:03)
[2016-12-01] MEDS: MEROPENEM 500 MG in NORMAL SALINE 100 ML IV SCH ×2 (10:03→20:21)
[2016-12-01] MEDS: buPROPion HCL 100 MG TABLET PO SCH (10:03)
[2016-12-01] MEDS: SPIRONOLACTONE 25 MG TABLET PO SCH (10:04)
[2016-12-01] MEDS: FUROSEMIDE 20 MG TABLET PO SCH ×2 (10:04→20:20)
[2016-12-01] MEDS: HYDROPHILIC OINTMENT 454 APPL JAR TP SCH ×2 (10:07→20:20)
[2016-12-01] MEDS: ALBUTEROL SULFATE 2.5 MG/0.5 ML VIAL.NEB IH PRN (10:15)
[2016-12-01] MEDS ORDERED: VANCOMYCIN HCL LEVEL XX ONE (12:00)
[2016-12-01 12:17] LABS: Hematocrit 40.8 % (37.0-47.0); Hemoglobin 12.2 gm/dL (12.5-16.0); Mean Cell Volume 102.3 fl (78-100); Mean Corpuscular Hemoglobin 30.6 pg (27-31); Mean Corpuscular Hgb Conc 29.9 g/dl (32-36); Neutrophil # 15.1 K/mm3 (1.3-6.0); Neutrophil % 82.7 % (42-75.0); Platelet Count 296 K/mm3 (150-450); Red Blood Count 3.99 M/mm3 (4.2-5.4); Red Cell Distribution Width 14.6 % (11.5-14.0); White Blood Count 18.2 K/mm3 (4.0-10.5)
[2016-12-01] MEDS: HYDROCHLOROTHIAZIDE 25 MG TABLET PO SCH (13:23)
[2016-12-01] MEDS: VANCOMYCIN HCL 1.25 GM in DEXTROSE 5 % IN WATER 250 ML IV SCH ×2 (13:32)
[2016-12-01] MEDS: ENOXAPARIN SODIUM 30 MG/0.3 ML SYRG SC SCH (15:22)
[2016-12-01] MEDS: FLUCONAZOLE 100 MG TABLET PO SCH (15:23)
[2016-12-01] MEDS: NYSTATIN 15 APPL BTL TP SCH (20:22)
[2016-12-02] MEDS: ALBUTEROL SULFATE/IPRATROPIUM 3 ML NEBU IH SCH ×3 (00:58→13:14)
[2016-12-02] MEDS: INSULIN LISPRO 100 UNITS/ML VIAL SC SCH ×2 (07:13→11:41)
[2016-12-02 08:44] LABS: Hematocrit 37.8 % (37.0-47.0); Hemoglobin 11.6 gm/dL (12.5-16.0); Mean Cell Volume 101.1 fl (78-100); Mean Corpuscular Hgb Conc 30.7 g/dl (32-36); Mean Platelet Volume 9.5 fl (6.0-9.5); Platelet Count 252 K/mm3 (150-450); Red Blood Count 3.74 M/mm3 (4.2-5.4); Red Cell Distribution Width 14.6 % (11.5-14.0); White Blood Count 19.2 K/mm3 (4.0-10.5)
[2016-12-02 08:49] LABS: Total Cells Counted 100
[2016-12-02] MEDS: SPIRONOLACTONE 25 MG TABLET PO SCH (08:50)
[2016-12-02] MEDS: LORATADINE 10 MG TABLET PO SCH (08:50)
[2016-12-02] MEDS: amLODIPine BESYLATE 5 MG TABLET PO SCH (08:50)
[2016-12-02] MEDS: DOCUSATE SODIUM 100 MG CAPSULE PO SCH (08:50)
[2016-12-02] MEDS: FUROSEMIDE 20 MG TABLET PO SCH (08:52)
[2016-12-02] MEDS: buPROPion HCL 100 MG TABLET PO SCH (08:52)
[2016-12-02] MEDS: HYDROPHILIC OINTMENT 454 APPL JAR TP SCH (08:53)
[2016-12-02] MEDS: NYSTATIN 15 APPL BTL TP SCH (08:54)
[2016-12-02] MEDS: FLUCONAZOLE 100 MG TABLET PO SCH (08:55)
[2016-12-02] MEDS: glipiZIDE 5 MG TABLET PO SCH (08:57)
[2016-12-02 09:37] LABS: Lymphocyte 9 % (20-51); Macrocytosis 2+; Monocyte 4 % (0-9); Neutrophil 87 % (42-75); Neutrophil # 16.7 K/mm3 (1.3-6.0)
[2016-12-02 09:38] LABS: Platelet Estimate Normal (NORMAL)
--- NOTE | 2016-12-02 10:31 | DS ---
(1) Acute respiratory distress Problem: Resolved (2) COPD exacerbation Problem: Resolved (3) Pneumonia Diagnosis(s): haad 7 days of IV merrem and vanco for HCAP with aspiration. Problem: Resolved Qualifiers: Pneumonia type: due to unspecified organism Laterality: unspecified laterality Lung location: unspecified part of lung Qualified Code(s): J18.9 - Pneumonia, unspecified organism (4) Pleural effusion Problem: Suspected (5) CHF (congestive heart failure) Problem: Chronic Qualifiers: Congestive heart failure type: combined Congestive heart failure chronicity : acute on chronic Qualified Code(s): I50.43 - Acute on chronic combined systolic (congestive) and diastolic (congestive) heart failure (6) Diabetes Problem: Chronic Qualifiers: Diabetes mellitus type: type 2 Diabetes mellitus complication status: with hyperglycemia Diabetes mellitus correction insulin use: without correction use Qualified Code(s): E11.65 - Type 2 diabetes mellitus with hyperglycemia (7) Morbid (severe) obesity with alveolar hypoventilation Problem: Chronic (8) Pulmonary hypertension Problem: Chronic (9) Leukocytosis Diagnosis(s): likley due to UTI, Candidia albicans. On Diflucan. Problem: Acute (10) UTI (urinary tract infection) Diagnosis(s): Anum albicans on UCS- on Diflucan Problem: Acute Description of Stay: Zuleyma Herring is a 76-yr-old WF with a PMH of: Acute Respiratory Failure, COPD , DM II, HTN, HLD, PVD & Venous Stasis Ulcers who was admitted on 11/24/2016 for desaturationand SOB. 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 She was then send to the [facility] ER via the Ambulance. By the time EMS arrived, she had recuperated to POX > 90% on 3 lnc. Pt is chronically on 2 L 26/09 for her COPD. She states that for the last two days, she has had worsening SOB. She also reports having increasing productive cough and is able to bring up thick greenish- yellow phlegm. At the ED, she was found to have an elevated WBC of 14, 600 with a left shift. Her BNP level was elevated at 919. During physical exam, she in noted to use accessory muscles to breath, has rales on LT base, and has significant generalized edema.The CXR had findings concerning for Pneumonia and CHF. She was admitted inpatient for a minimum of for HCAP, COPD exacerbation . She was started on IV antibiotics and IV diuretics . Speech therapy was consulted and and she was started on mechanical soft diet and nectar thickened fluids. Her WBC started to trend down and then lately has been creeping up again . Repeat UCS is showing Yeast infection. She was started on oral diflucan. She also had a bd sera of yeast infrction of her abdominal folds and mycostatin powder has been started. This is likely the cause of robby WBC resurgence. Procedures Performed: none Discharge Disposition: [facility] Disposition: [facility] Condition: Fair Discharge Activity: Activity as tolerated Discharge Diet: Consistent carbs Referrals: Omayra Bird MD [Primary Care Provider] - Additional Patient Instructions (free text): Will follow up patient in the NH. Repeat CBC on Monday. If patient develops F/C/ SOB to call the various exceptionalities teacher physician. Prescriptions (Any new or edited meds): Fluconazole [Diflucan] 100 mg PO DAILY #14 tab Nystatin [Mycostatin Powder] 1 appl TP BID #2 btl Complete Home Medications List: Complete Home Medication List: Ciclopirox/Skin Cleanser No.28 [Ciclodan 0.77% Cream Kit] 1 appl TP DAILY PRN Lisinopril [Zestril] 10 mg PO DAILY 12/19/13 Docusate Sodium [Colace] 100 mg PO BID 10/05/14 Albuterol Sulfate [Albuterol Sulfate 2.5 MG/3 ML] 2.5 mg IH Q4H PRN 10/24/16 Bupropion HCl 75 mg PO DAILY 10/24/16 Fexofenadine HCl 60 mg PO DAILY 10/24/16 Furosemide [Lasix] 60 mg PO BID 10/24/16 Hydrophilic Ointment [Aquaphilic Ointment] 1 appl TP BID 10/24/16 Magnesium Hydroxide [Milk Of Magnesia] 30 ml PO DAILY PRN 10/24/16 Sodium Chloride [Saline Nasal Mist] 2 spray NS BID PRN 10/24/16 Spironolactone [Aldactone] 25 mg PO DAILY 10/24/16 amLODIPine BESYLATE [Norvasc] 5 mg PO DAILY 10/24/16 glipiZIDE [Glipizide] 5 mg PO DAILY 10/24/16 Fluconazole [Diflucan] 100 mg PO DAILY #14 tab 12/02/16 Nystatin [Mycostatin Powder] 1 appl TP BID #2 btl 12/02/16 Amb Orders for Discharge: CBC Time Frame: 3 Days, Location: Determined By Patient
[2016-12-02] MEDS: HYDROCHLOROTHIAZIDE 25 MG TABLET PO SCH (11:41)
[2016-12-02 11:43] VITALS: BP 142/82
== END 2016-12-02 14:05 | DRG 291 ==
LOC: ER 02:56 → MS 04:10
PROVIDERS: ADMIT Nurse Practitioner; ATTEND Internal Medicine
PROC: 4A033R1 Measurement of Arterial Saturation, Peripheral, Percutaneous Approach (ICD-10-PCS; principal; 2016-11-24)
DX: I50.43 Acute on chronic combined systolic (congestive) and diastolic (congestive) heart failure (principal); J18.1 Lobar pneumonia, unspecified organism; J44.1 Chronic obstructive pulmonary disease with (acute) exacerbation; E66.2 Morbid (severe) obesity with alveolar hypoventilation; Z68.43 Body mass index [BMI] 50.0-59.9, adult; J44.0 Chronic obstructive pulmonary disease with (acute) lower respiratory infection; R06.00 Dyspnea, unspecified; I27.2 Other secondary pulmonary hypertension; Z71.3 Dietary counseling and surveillance; Z23 Encounter for immunization
CPT/HCPCS: 36415; 36600; 70371; 71010; 80048; 80051; 80053; 80202; 81001; 82803; 83880; 84484; 85007; 85025; 87040; 87081; 87086; 87106; 87400; 87449; 90686; 92526; 92610; 92611; 93005; 94640; 94760; 96365; 96375; 97110; 97116; 97161; 97165; 99283; G0008